=== PATIENT | male | born 1950 | race Caucasian/White ===

== ENCOUNTER → 2019-12-15 10:58 | Outpatient (BNVA) | payer OTHER, SELFPAY | PROVIDERS: Family Provider Internal Medicine; PCP Internal Medicine; Visit Provider Urology | DX: N30.21 Other chronic cystitis with hematuria (principal); N32.89 Other specified disorders of bladder; R35.1 Nocturia | CPT/HCPCS: 81001 ==

== ENCOUNTER → 2020-02-16 08:12 | Outpatient (BNVA) | payer OTHER, SELFPAY | PROVIDERS: Family Provider Internal Medicine; PCP Internal Medicine; Visit Provider Urology | DX: N30.20 Other chronic cystitis without hematuria (principal); R33.8 Other retention of urine; N32.89 Other specified disorders of bladder; R31.29 Other microscopic hematuria | CPT/HCPCS: 81001 ==

== ENCOUNTER 2021-03-16 07:53 | Outpatient (CLI) | payer OTHER, SELFPAY ==
--- NOTE | 2021-03-16 | CT_ITS ---
WS: [id number] CT scan of the neck. Additional two-dimensional coronal and sagittal reconstruction was performed. Clinical Data: PAIN IN THROAT Comparison: None. DLP: 2707.[address] scans at [facility] use at least one of these dose optimization techniques: automat ed exposure control; mA and/or kV adjustment per patient size (includes targeted exams where dose is matched to clinical indication); or iterative reconstruction. Findings: The thyroid gland is enlarged with the right lobe measuring 3.8 x 7.3 x 7.4 cm in transverse, anterio r posterior and superior inferior height respectively. The left lobe is smaller measuring 1.6 x 2.5 x 4.2 cm in transverse, anterior posterior and superior inferior height respectively. The thyroid glan d shows mixed enhancement. There is deviation of the trachea from right to left because of the thyroi d enlargement. No lymphadenopathy is noted. The salivary glands are unremarkable. There is no prevertebral soft tiss ue swelling. The larynx is symmetric. The floor of the mouth and parapharyngeal spaces are normal. T he oral cavity is unremarkable. The carotid arteries bifurcate normally. The vertebral arteries are normal. 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 The lung apices show n o abnormalities. The portions of the intracranial circulation which are seen demonstrate no abnormali ties. No erosion of the skull or skull base is seen. There is partial opacification of the left maxil reyes sinus. CT/CT neck w con* [id number] Impression: 1. Thyroid enlargement especially the right lobe. 2. Deviation of the trachea from right to left because of the enlarged right lo be of the thyroid.
[2021-03-16 09:03] LABS: Blood Urea Nitrogen 23 mg/dL (8-23)
[2021-03-16] MEDS: iohexol 300 mg/mL 100 mL Btl IV (09:22)
== END 2021-03-16 07:54 | disposition home or self-care (01) ==
LOC: RAD 08:22 → RADWPI 08:28
PROVIDERS: PCP Internal Medicine; Visit Provider Otolaryngology
DX: E04.9 Nontoxic goiter, unspecified (principal); Q89.2 Congenital malformations of other endocrine glands
CPT/HCPCS: 70491; 82565; 84520; Q9967

== ENCOUNTER 2021-04-12 06:37 | Outpatient (CLI) | payer OTHER, SELFPAY ==
[2021-04-12 07:11] VITALS: BMI 39.4
--- NOTE | 2021-04-12 07:31 | ECG_ITS ---
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 Interpretive Statements NAME OF STUDY: LEXISCAN SESTAMIBI STRESS TEST INDICATION: Chest Pain; Dyspnea on Exertion PROCEDURE: At the baseline, the blood pressure was 150/79 mmHg, oxygen saturation 94% with a heart rate of 54 beats per minute. The electrocardiogram showed sinus bradycardia, normal axis with possible old anterior infarct. The Lexiscan was infused over a period of 20 seconds. A total of 0.4 milligrams of Lexiscan was infused. The stress phase was continued for a total of 5 minutes. Heart rate at the end of the stress phase was 63 bpm, oxygen saturation 95% with a blood pressure of 154/76 mmHg. The EKG at the peak infusion revealed sinus rhythm with no significant ST-T wave changes. Isolated PVCs noted during Lexiscan infusion. Study was terminated due to protocol completion. Sestamibi was injected 20 seconds after the Lexiscan infusion. Blood pressure at the end of the recovery phase was 149/82 mmHg, oxygen saturation 95% with a heart rate of 69 beats per minute. CONCLUSION: 1. No significant EKG changes with the LexiScan infusion. 2. No LexiScan induced chest pain or cardiac arrhythmia. 3. Normal blood pressure and heart rate response. 4. Sestamibi/sestamibi perfusion scan pending; see separate report. Electronically Signed On 04-12-2021 13:07:51 CDT by Yarelis Davidson M.D. [id number]
--- NOTE | 2021-04-12 07:32 | NMCV_ITS ---
NM belinda perf SPECT r/s* [id number] Tom Germain Age: 70 Gender: M : 1950 Exam Date: 04/12/2021 08:07 Ordering Phys: Yarelis Davidson MD ([email or web address]) Technologist: LITTLE Perry Exam Location: [facility] Indications: CHEST PAIN STRESS TEST Please see separate stress test report in [facility] for full findings IMAGE PROTOCOL Rest/Stress 1 Lexiscan Day Radiopharmaceutical Dose (mCi) Administration Site Administered by Rest: Tc-99m 10.9 IV LITTLE Russo Sestamibi Stress:Tc-99m 32.5 IV LITTLE Perry Sestamiharley Rest: 12-Apr-2021 60 Discovery 630 Stress: 12-Apr-2021 30 Discovery 630 0.4mg Lexiscan. Images obtained in supine and prone position. SPECT RESULTS Technical Quality: Excellent Raw Data Analysis: Normal Image Corrections: No attenuation or motion correction applied Summed Stress Score: 2 Summed Rest Score: 0 Summed Difference Score: 2 PERFUSION FINDINGS Small size perfusion abnormality of mild severity of apical inferior and apical lateral schneider on stress images. FUNCTIONAL RESULTS (calculated via Gated SPECT) Stress Image LV EF (%): 68 Stress EDV (mL):112 TID: 0.97 Stress ESV (mL):36 FUNCTIONAL FINDINGS: The left ventricle is normal in size. Transient Ischemia Dilatation of 0.97. There is normal left ventricular systolic function. The left ventricular ejection fraction is normal with a value of 68%. There is normal left ventricular wall thickening with no regional wall motion abnormality. Normal end-diastolic end-systolic volumes. IMPRESSIONS 1. Small size reversible perfusion abnormality of apical inferior and apical lateral schneider on stress images. 2. This is likely suggestive of small area of ischemia in left anterior descending/circumflex artery territory. 3. Overall left ventricular systolic function is normal without regional wall motion abnormalities. 4. The left ventricular ejection fraction is normal with a value of 68%. 5. No prior similar studies to compare. Yarelis Davidson MD (Electronically Signed) Final Date: 12 Apr 2021 10:21 S
[2021-04-12] MEDS: regadenoson 0.4 Mg/5 ml Syringe IVP (08:39)
--- NOTE | 2021-04-12 08:39 | SUR.PREOP ---
Patient reports no pain or discomfort prior to the start of the procedure.
[2021-04-12 09:06] VITALS: BP 149/82; PULSE 69
== END 2021-04-12 06:38 | disposition home or self-care (01) ==
LOC: RAD 06:47 → CDL 07:04
PROVIDERS: PCP Family Medicine; Visit Provider Internal Medicine Cardiovascular Disease
DX: R07.9 Chest pain, unspecified (principal); R06.09 Other forms of dyspnea
CPT/HCPCS: 78452; 93017; A9500; J2785

== ENCOUNTER 2021-04-27 12:50 | Outpatient (CLI) | payer OTHER, SELFPAY ==
--- NOTE | 2021-04-27 13:30 | USCV_ITS ---
Tom Germain Age: 70 Gender: M : 1950 Exam Date: 04/27/2021 13:34 Ordering Phys: Yarelis Davidson MD ([email or web address]) Technologist: Caity Bautista Exam Location: [facility] Indication: PVC's, Atrial fibrillation BP: 136 / 78 HR: 104 Rhythm: Atrial fibrillation Technical Quality: Adequate MEASUREMENTS (Male / Female) Normal Values 2D ECHO LV Diastolic Diameter PLAX 3.6 cm 4.2 - 5.9 / 3.9 - 5.3 cm LV Systolic Diameter PLAX 2.2 cm IVS Diastolic Thickness 1.5 cm 0.6 - 1.0 / 0.6 - 0.9 cm IVS Systolic Thickness 1.8 cm LVPW Diastolic Thickness 1.7 cm 0.6 - 1.0 / 0.6 - 0.9 cm LVPW Systolic Thickness 2.9 cm LVOT Diameter 2.0 cm LV Ejection Fraction 2D Teich 71.6 % LV Ejection Fraction MOD 2C 76.6 % LV Ejection Fraction 2C AL 78.7 % LA Diameter 4.5 cm LA Width 2.9 cm LA Height 5.4 cm RA Width 2.6 cm RA Height 4.1 cm Aorta at Sinotubular Diameter 3.5 cm M-MODE LV Diastolic Diameter MM 3.9 cm 4.2 - 5.9 / 3.9 - 5.3 cm LV Systolic Diameter MM 4.0 cm LV Ejection Fraction MM Teich -3.7 % IVS Diastolic Thickness MM 1.3 cm 0.6 - 1.0 / 0.6 - 0.9 cm IVS Systolic Thickness MM 1.0 cm LVPW Diastolic Thickness MM 1.6 cm 0.6 - 1.0 / 0.6 - 0.9 cm LVPW Systolic Thickness MM 1.9 cm Aortic Annulus Diameter 3.6 cm LA Ao Ratio MM 1.2 MV E Point Septal Separation 0.4 cm DOPPLER AV Peak Velocity 146.0 cm/s LVOT Peak Velocity 126.0 cm/s AV Area Cont Eq vti 4.0 cm squared AV Area Cont Eq pk 2.7 cm squared MV Peak Velocity 132.0 cm/s MV Area PHT 3.4 cm squared Mitral E to A Ratio 3.3 MV E' Velocity 55.0 cm/s Mitral E to MV E' Ratio 9.3 Mitral E to LV E' Lateral Ratio 17.4 Mitral E to LV E' Septal Ratio 6.4 TR Peak Velocity 76.0 cm/s TR Peak Gradient 2.3 mmHg TR Mean Velocity 88.7 cm/s TR Mean Gradient 4.1 mmHg TR Velocity Time Integral 16.9 cm Right Atrial Pressure 3.0 mmHg Pulmonary Artery Systolic Pressu 5.3 mmHg PV Peak Velocity 97.0 cm/s RV Acceleration Time 0.1 s RV Ejection Time 0.4 s RV AcT/ET 0.4 FINDINGS Left Ventricle Normal left ventricular cavity size and systolic function. Left ventricular ejection fraction is estimated at 65-70 %. No regional wall motion abnormalities. Rhythm precludes evaluation of diastolic function. Right Ventricle Normal right ventricular size and systolic function. Right Atrium Right atrium not well visualized. Left Atrium Mildly increased left atrial size. Mitral Valve Mitral valve not well visualized. No mitral valve stenosis. Aortic Valve Aortic valve not well visualized. Tricuspid aortic valve. No aortic valve stenosis. No aortic valve regurgitation. Tricuspid Valve Tricuspid valve not well visualized. Trace tricuspid valve regurgitation. Pulmonic Valve Pulmonic valve not well visualized. No pulmonary valve stenosis. Trace pulmonary valve regurgitation. Pericardium No pericardial effusion. Aorta Aorta not well visualized. CONCLUSIONS 1. This is a technically difficult study. Ultrasound enhancing agent was used as per protocol. 2. Normal left ventricular cavity size and systolic function. Left ventricular ejection fraction is estimated at 65-70 %. No regional wall motion abnormalities. 3. Normal right ventricular size and systolic function. 4. No prior similar studies to compare. Yarelis Davidson MD (Electronically Signed) Final Date: 29 Apr 2021 17:44 S
[2021-04-27] MEDS: perflutren protein-a microsphr 0.22 mg/mL SDV 3 mL IV (16:08)
== END 2021-04-27 12:51 | disposition home or self-care (01) ==
PROVIDERS: PCP Family Medicine; Visit Provider Internal Medicine Cardiovascular Disease
DX: I49.3 Ventricular premature depolarization (principal); R07.9 Chest pain, unspecified
CPT/HCPCS: C8929; Q9956

== ENCOUNTER → 2021-06-07 09:24 | Outpatient (BNVA) | payer OTHER, SELFPAY | PROVIDERS: PCP Family Medicine; Referring Provider Internal Medicine Cardiovascular Disease; Visit Provider Internal Medicine Cardiovascular Disease | DX: Z01.818 Encounter for other preprocedural examination (principal); R07.9 Chest pain, unspecified; Z20.822 Contact with and (suspected) exposure to COVID-19 | CPT/HCPCS: 80048; 85025; 85610; 87635 ==

== ENCOUNTER 2021-06-13 06:05 | Day surgery (SDC) | payer OTHER, SELFPAY ==
[2021-06-13] VITALS (11 sets, daily range): BP systolic 90–130; BP diastolic 64–77; PULSE 78–109; RESP 13–21; TEMP 36.8–36.9; O2SAT 94–96; BMI 39.7
--- NOTE | 2021-06-13 06:00 | XACV_ITS ---
Ht: 178 cm Wt: 126 kg BSA: 2.55 m2 Gender: Male : 1950 Any Known Allergies: Other Exam Priority: Routine Procedure(s): Procedure Description: Diagnostic procedure Procedure Description: PCI procedure Procedure Description: Drug Eluting Coronary Stent Procedure Description: PTCA Procedure Description: Coronary Angiography Diagnostic Cath Status: Elective Diagnostic Findings * Left Main has no significant disease. * Circumflex has no significant disease. * Mid Left Anterior Descending: mild 40% stenosis, KEESHA: 3 flow. * Mid Right Coronary Artery: severe 85% stenosis, KEESHA: 3 flow. * 1st Diagonal: moderate 50% stenosis, KEESHA: 3 flow. * Coronary angiography shows right dominance. PCI Status: Elective PCI Indication: New Onset Angina <= 2 months Interventional Findings * Procedure details: We engaged RCA with a JR4 guide catheter. IV heparin was administered to maintain an ACT above 250 seconds. A 0.014 run-through guidewire was used to cross the stenosis and was placed in PDA branch. 2.5 x 8 mm semicompliant balloon was used to predilate the mid RCA stenosis. We then placed a 3.0x12 mm resolute adan ADY in mid RCA. At this time final angiogram was performed that showed excellent stent expansion, KEESHA-3 flow and no residual stenosis. Guidewire and guide catheter. * Mid Right Coronary Artery: 85% stenosis treated with a AB TREK 2.50X8 RX BALLOON, and MDT R ADAN 3.0X12 ADY. 0% residual stenosis, KEESHA: 3 flow. Conclusions 1. Severe mid RCA stenosis 2. s/p successful revascularization with ADY x1. 3. Mid Right Coronary Artery was treated with a Balloon, and Drug Eluting Stent. Recommendations * Transfer to [facility]. * Aspirin and Plavix for 1 year. * High intensity statin therapy. * Outpatient cardiology follow-up in 4 weeks. Interventional RX Recommendation: PCI w/o planned CABG Diagnostic RX Recommendation: PCI w/o planned CABG Anticoagulation: Heparin Pressures Phase:Rest AO : 73 / 63 ( 66 ) @ 7:03:00 AM 120 / 108 ( 79 ) @ 7:10:00 AM Clinical Evaluation EBL: 5mL-10mL Procedural Details Procedure Consent Obtained. Pre-Procedure Time Out. Identified patient by full name and date of as verbalized by the patient/guarantor. Does the consent match the physician's order: Yes. Accurate & Complete Informed Consent: Yes. Inpatient/Outpatient History & Physical on Chart: Yes. If H&P is completed, is and addenduem needed: N/A; If yes, is the addendum complete: N/A. Visualize and Verify Site with Patient/Guarantor: N/A. Relevant Radiology Images available: Yes. Pre-op teaching completed and patient verbalized understanding. The risks, benefits, and alternatives of sedation and/or procedure were discussed by physician. The patient agrees to continue. Procedure started. Correct patient, site and procedure confirmed by cath team. PERRLA. 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 Lungs clear x 5 lobes. IV Fluids: 0.9% NaCl at KVO. 0 mL infused prior to geoscience laboratory technician. Pre Procedural Pulses: right dorsalis pedis was 1+. Pre Procedural Pulses: left dorsalis pedis was 3+. Pre Procedural Pulses: bilateral posterior tibial was 3+. Pre Procedural Pulses: bilateral radial was 3+. pt on room air. right groin was prepped with chloroprep then draped in the usual sterile fashion. right radial was prepped with chloroprep then draped in the usual sterile fashion. Equipment: 5F - Radial. Cardiac Cath Pack. ACIST Manifold Kit Model BT 2000. Heparinized Saline (2 units/mL), 1000 mL bag. Physician notified. Baseline sample Acquired. HR: 91 BPM. Physician arrived. Physician scrubbed in. Immediate Pre-Procedure Time Out. Correct Patient: Yes; Correct Procedure: Yes; Correct Site: Yes; Correct Patient Position: Yes; Correct Supplies: Yes; Dried Flammable Prep: Yes; Blood Products Available: No;. Lidocaine 1% infiltrated to the right radial. Arterial access obtained. A 5 mexican TIG catheter in over wire. Catheter out. A 5 mexican JL3.5 catheter in over wire. Multiple views taken of left coronary artery. Oxygen started at 3liters/min via nasal canula. Catheter out. A 5 mexican JR4 catheter in over wire. Multiple views taken of right coronary artery. Catheter out. Inventory is TR 180cm Runthrough NS extra floppy 0.014 wire. 6 mexican JR 4 guide catheter was inserted over the wire. Runthrough guidewire was advanced through the guide catheter to lesion in the mid RCA. Guidewire advanced across lesion. Inflation number : 1 A AB TREK 2.50X8 RX BALLOON was prepped and advanced across the Mid RCA , then inflated to 12 LYLY for 0:21 seconds. Inflation number: 2 The AB TREK 2.50X8 RX BALLOON was reinflated across the Mid RCA, to 12 LYLY for 0:03 seconds. Balloon out. Inflation Number : 3 A MDNikolas R ADAN 3.0X12 ADY -Lot Number# [id number] exp 09-27-2022 was prepped and advanced across the Mid RCA. The stent was deployed at 14 LYLY for 0:23 seconds. Stent balloon out over wire. Results checked. Wire out. Results checked. Guide catheter out. A TR Band was successful obtaining hemostatsis at the Right Radial artery insertion site. TR band placed. Hemostasis obtained. Post Procedure: Pulses reassessed and unchanged. PERRLA. 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 No VTE prophylaxis required. Fluoro: 9:50. Contrast type used: Omnipaque 300 mgI/mL, 500 mL bottle. [id number]. Complications: none. Estimated blood loss: 5mL-10mL. Patient transferred by wheelchair to 1st floor. Medication's Wasted: Lidocaine 1% = 18 mL. Medication's Wasted: Nitro = 49.8 mg. Total IV fluids: 279 mL. PCI Indication:severe mid RCA stenosis. Post-op diagnosis: severe mid RCA stenosis. [facility] Clinical Fraility Score: 3: Managing Well. Hand Salter Indications: Worsening Angina - abnormal stress test. Chest Pain Symptom Assessment: Typical Angina Symptoms. Cardiovascular Instability: No. Procedure completed. Vital chart was stopped. Access Site Site: Right Radial artery Sheath Size: 6 Fr Hemostasis Method: TR Band Hemostasis Success: Successful Procedure Medications Start: 7:54 AM Stop: 7:54 AM Medication: Versed Amount: 1 mg Route: I.V. Start: 7:54 AM Stop: 7:54 AM Medication: Fentanyl Amount: 50 mcg Route: I.V. Start: 7:57 AM Stop: 7:57 AM Medication: Versed Amount: 1 mg Route: I.V. Start: 7:57 AM Stop: 7:57 AM Medication: Fentanyl Amount: 50 mcg Route: I.V. Start: 7:57 AM Stop: 7:57 AM Medication: Nitrogylcerin Amount: 200 mcg Route: I.A. Start: 7:59 AM Stop: 7:59 AM Medication: Heparin Amount: 5000 units Route: I.V. Start: 8:04 AM Stop: 8:04 AM Medication: 0.9% Saline Amount: 250 ml Route: I.V. bolus Start: 8:15 AM Stop: 8:15 AM Medication: Heparin Amount: 6000 units Route: I.V. Start: 8:16 AM Stop: 8:16 AM Medication: Versed Amount: 1 mg Route: I.V. Start: 8:20 AM Stop: 8:20 AM Medication: 0.9% Saline Amount: 100 ml/hr Route: I.V. drip Start: 8:27 AM Stop: 8:27 AM Medication: Plavix Amount: 300 mg Route: P.O. I, the attending physician, have reviewed and verified all procedure medications. Yes, all medications given per verbal order History/Risk Factors Hypertension: Yes Dyslipidemia: Yes Tobacco Use: Never Report Signatures Finalized by Connor Ramirez MD on 06/22/2021 09:02 AM
[2021-06-13] MEDS: diphenhydrAMINE 50 mg Capsule PO (06:43)
--- NOTE | 2021-06-13 07:48 | W.PM.OPSUD ---
Surgery/Procedure H&P Update DATE OF PROCEDURE: June 13, 2021 DATE H&P PERFORMED: 05/23/21 H&P UPDATE INFORMATION: I have reviewed H&P completed within last 30 days, I have examined patient prior to procedure and No changes to prior documentation PREOP DIAGNOSIS: Chest pain/abnormal stress test PRIMARY INDICATION FOR PROCEDURE: Chest pain/abnormal stress test PLANNED PROCEDURE: Operation Date: 06/13/21 07:00 Proposed Procedures p left Cardiac Catheterization 88766 r07.89(Left) - Connor Ramirez M.D Possible percutaneous coronary intervention PATIENT REASSESSED PRIOR TO SEDATION, WITH NO CHANGE NOTED: Yes PHYSICAL EXAM: alert, oriented x 3, clear to auscultation bilaterally and regular rate & rhythm AIRWAY EVAL/ANESTHESIA PLAN: normal airway, ASA III, Monitored Anesthesia, Local Anesthesia, Risks, benefits & alternatives of sedation and/or procedure discussed and Patient agrees to continue as planned
--- NOTE | 2021-06-13 09:26 | PC.NURSE ---
Spoke with Dr. Ramirez to notify him of patient reporting taking all his scheduled medications prior to admission also patient patient reports he did not take his Imdur prior to admission reported patients current Bp of 115/56 instructions to hold this dose of mediations
--- NOTE | 2021-06-13 18:20 | PC.NURSE ---
patients family spouse approached nurses station with concerns of patient HR remaining greater than 100 this nurse expressed concern for patient and has been keeping a close eye on it spouse proceeded to tell this nurse you have done nothing about it Am i the only one concerned abgout his heart rate being so high this nurse educated spouse the doctor was aware of patient heart rate this nurse educated spouse that the patient was in no distress or pain and the doctor would be down after clinic This nurse placed call to Dr galan to report spouses concerns verbal instructions received to start patient on 3.125 of coreg Doctor notified of patients allergy to metoprolol instructions to proceed with administration upon administration this nurse educated about medication Dr barrett to bed side wit verbal instructions to increase medication does to 6.125 this nurse already administered 3.125 verbal instructions to give an additional 3.12 coreg
--- NOTE | 2021-06-13 18:31 | ECG_ITS ---
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 Measurements Intervals [place] Rate: 111 P: [place]: QRS: 31 QRSD: 95 T: -6 QT: 419 QTc: 571 Interpretive Statements ATRIAL FIBRILLATION WITH RAPID VENTRICULAR RESPONSE LOW QRS VOLTAGE IN PRECORDIAL LEADS [QRS DEFLECTION < 1.0 mV IN CHEST LEADS] NONSPECIFIC T-WAVE ABNORMALITY No previous ECG available for comparison Electronically Signed On 06-13-2021 21:37:29 CDT by Yarelis Davidson M.D. [id number]
[2021-06-13] MEDS: carvedilol 3.125 mg Tablet PO ×2 (18:52→18:58)
[2021-06-14 04:00] VITALS: BP 120/82; PULSE 99; RESP 18; TEMP 36.8; O2SAT 94
[2021-06-14 05:46] LABS: Basophils # 0.1 10^3/uL (0.0-0.1); Basophils % 0.7 %; Eosinophils # 0.3 10^3/uL (0.0-0.8); Eosinophils % 4.2 %; Hemoglobin 12.6 g/dL (11.7-16.6); Lymphocytes # 1.3 10^3/uL (0.8-4.8); Lymphocytes % 19.4 %; Mean Corpuscular HGB Conc 31.5 g/dL (30.0-36.0); Mean Corpuscular Hemoglobin 28.3 pg (28.0-34.0); Mean Corpuscular Volume 89.7 fL (80-94); Mean Platelet Volume 9.9 fL (7.4-10.4); Monocytes # 0.5 10^3/uL (0.2-0.9); Monocytes % 7.7 %; Neutrophils # 4.55 10^3/uL (1.8-7.7); Neutrophils % 67.9 %; Nucleated Red Blood Cells % 0 %; Platelet Count 222 10^3/cmm (130-400); Red Blood Count 4.46 10^6/uL (4.1-5.3); Red Cell Distribution Width 13.5 % (12.1-15.1); White Blood Count 6.7 10^3/uL (4.0-10.0)
[2021-06-14 05:47] VITALS: PULSE 95
[2021-06-14 06:03] LABS: Blood Urea Nitrogen 16 mg/dL (8-23); Calcium 8.5 mg/dL (8.5-10.5); Carbon Dioxide 24 mmol/L (22-29); Chloride 105 mmol/L (98-107); Glucose 96 mg/dL (65-115); Osmolality Calculated 287 mOsm/kg (285-295); Sodium 138 mmol/L (136-145)
[2021-06-14 08:00] VITALS: BP 138/93; PULSE 117; RESP 20; O2SAT 93
[2021-06-14] MEDS: isosorbide mononitrate ER 30 mg Tablet 15 MG PO (08:34)
[2021-06-14] MEDS: lisinopril 5 mg Tablet PO (08:35)
[2021-06-14] MEDS: finasteride 5 mg Tablet PO (08:36)
[2021-06-14] MEDS: carvedilol 3.125 mg Tablet PO (08:36)
[2021-06-14] MEDS: atorvastatin 40 mg Tablet PO (08:36)
[2021-06-14] MEDS: potassium chloride ER 10 mEq Tablet PO (08:36)
[2021-06-14] MEDS: clopidogrel 75 mg Tablet PO (08:36)
[2021-06-14] MEDS: rivaroxaban 10 mg Tablet 20 MG PO (10:04)
--- NOTE | 2021-06-14 10:31 | PC.CHAP ---
Pastoral Care Encounter/Spiritual Assessment Type of Contact [] Declined renal social worker visit [] Patient/Family/Request visit [] Outpatient visit [] Follow-up visit [] Physician referral [] Code/Alert [] Routine visit [] Staff referral [] Actively dying [] Patient sleeping [] Family support [] [] Out of room [] Palliative care [] [] Receiving care in room [] Pre-surgical visit [] Trauma [] Long length of stay [] ICU visit [x] Other: Isolation covid Relational/Emotional Strength [] Patient feels connected with others/family/visitors/staff [] Distress [] Loneliness/isolation [] Abandonment Spirituality of Patient [] Person of Diane [] Attends Protestant of their Diane [] Believes in Prayer [] Reads Bible or Lutheran materials [] There are Spiritual issues to be addressed Equine Dentist Interventions [] Prayer [] Active listening [] Non-anxious presence [] Spiritual/emotional support [] Crisis/trauma care [] Spiritual counseling [] Bereavement support [] Provided bereavement packet [] Provided Bible/devotional materials [] Provided toy/stuffed animal, coloring book to patient or family member [] Provided Communion [] Anointing/[place] [] Salvation [] Completed spiritual assessment [] Other: Impact on Illness or Injury [] Angry [] Fearful [] Anxious [] Often cries [] Exhaustion [] Unable to work [] Unable to attend latter-day [] Unable to walk/stand [] Unable to read [] Unable to drive [] Unable to eat/drink [] Unable to sleep [] Unable to be with family [] Patient intubated [] Other: Summary Isolation covid Time spent with patient 5 mins
[2021-06-14] MEDS: carvedilol 6.25 mg Tablet PO (10:40)
[2021-06-14 11:52] VITALS: BP 114/68; PULSE 105; RESP 19; TEMP 36.8; O2SAT 93
--- NOTE | 2021-06-14 12:42 | P.DS_ITS ---
Discharge Providers Date of Admission: June 13, 2021 Date of Discharge: June 14, 2021 Attending Provider at Admission: Connor Ramirez MD Attending Provider at Discharge: Connor Ramirez M.D Primary Care Provider: Leigh Arroyo MD Reason for Visit Reason for Visit: [facility] Brief History: 70 yo man with PMHx of HTN, DM-2 on OHA for last several years, HLD, h/o PAC's presented for evaluation of chest pains. He presents for evaluation of mild chest pain with radiation to both arms at times. This happens with exertion like carrying trash, yard work and lasts 5- 10 mins. Patient underwent nuclear stress test that was abnormal and was referred for left heart cath with possible percutaneous coronary intervention Hospital Course Hospital Course 70 yo man with PMHx of HTN, DM-2 on OHA for last several years, HLD, h/o PAC's presented for evaluation of chest pains. He presents for evaluation of mild chest pain with radiation to both arms at times. This happens with exertion like carrying trash, yard work and lasts 5-10 mins. Patient underwent nuclear stress test that was abnormal and was referred for left heart cath with possible percutaneous coronary intervention Coronary angiogram showed severe mid RCA stenosis that underwent successful revascularization with ADY x1. Left-sided arteries had diffuse luminal irregularities. No significant stenosis was noted. Patient stayed in the hospital overnight without any complications. Patient was found to have atrial fibrillation which is new for him. His heart rate has been fluctuating however after being put on Coreg, heart rates improved significantly and were around 100 bpm. He will follow with cardiology as outpatient. He has been started on Xarelto for stroke prevention. He will continue with Plavix and Xarelto. Physical Exam Narrative: EXAM NARRATIVE: GENERAL: Patient is alert, awake and oriented x3. [] NECK: No jugular vein distension. [] HEENT: No cyanosis. No icterus. No pallor. [] HEART: Regular S1 and S2. No murmur, rub or gallop. [] LUNGS: Clear to auscultate bilaterally. [] ABDOMEN: Soft, nontender and nondistended. Positive bowel sounds. No guarding, rebound or tenderness. [] CENTRAL NERVOUS SYSTEM: Grossly nonfocal. [] EXTREMITIES: Lower extremities with 1+ edema bilaterally. Pulses palpable in the lower extremities, both dorsalis pedis and posterior tibial. [] Discharge Data Data Completed and Pending: Pending at discharge Category Date Time Status SEISMIC INTERPRETER request for service Routin e Exams 06/13/21 06:00 Taken Labs from last 24 hours 06/14/21 06/14/21 05:20 05:20 WBC 6.7 RBC 4.46 Hgb 12.6 Hct 40.0 L MCV 89.7 MCH 28.3 MCHC 31.5 RDW 13.5 Plt Count 222 MPV 9.9 Neut % (Auto) 67.9 Lymph % (Auto) 19.4 [place] % (Auto) 7.7 Eos % (Auto) 4.2 Baso % (Auto) 0.7 Neut # (Auto) 4.55 Lymph # (Auto) 1.3 [place] # (Auto) 0.5 Eos # (Auto) 0.3 Baso # (Auto) 0.1 Nucleated RBC % (a uto) 0 Nucleated RBCs # 0.0 Sodium 138 Potassium 4.0 Chloride 105 Carbon Dioxide 24 Anion Gap 13.0 BUN 16 Creatinine 0.6 L GFR Calculation Not Reportable Glucose 96 Calculated Osmolal ity 287 Calcium 8.5 Vitals: Last Vital Signs Temp 98.2 F 06/14/21 11:52 Pulse 105 H 06/14/21 11:52 Resp 19 H 06/14/21 11:52 BP 114/68 06/14/21 11:52 Pulse Ox 93 06/14/21 11:52 Discharge Plan Discharge Patient Disposition: Home Condition: Stable Prescriptions: New clopidogrel 75 mg Tablet 75 mg PO DAILY 30 Days Qty: 90 RF: 3 rivaroxaban 20 mg tablet 20 mg PO DAILY Qty: 90 RF: 3 Coreg 6.25 mg tablet 6.25 mg PO BID Qty: 120 RF: 3 Continued nitroglycerin 0.4 mg tablet, sublingual 0.4 mg sublingual Q5M PRN (Reason: chest pain) Qty: 30 RF: 3 lisinopril 5 mg tablet 5 mg PO DAILY Qty: 30 RF: 5 isosorbide mononitrate 30 mg tablet extended release 24 hr 15 mg PO DAILY Qty: 30 RF: 2 rosuvastatin 10 mg tablet 10 mg PO DAILY RF: 0 meloxicam 15 mg tablet 15 mg PO DAILY RF: 0 finasteride 5 mg tablet 5 mg PO DAILY RF: 0 lidocaine HCl 2 % jelly 1 applic INTRA-URET ONCE Qty: 1 RF: 0 potassium chloride 10 mEq capsule, extended release 10 meq PO DAILY Qty: 90 RF: 3 magnesium oxide 400 mg magnesium tablet 400 mg PO DAILY Qty: 90 RF: 3 alogliptin 25 mg Tablet 25 mg PO DAILY RF: 0 Glucosamine Chondroitin 550-30-1 mg Capsule 550 cap PO DAILY RF: 0 Held metformin 500 mg tablet 500 mg PO BID RF: 0 Hold Instructions: Resume on 06/16/21. Discharge Orders: Discharge Order (Routine); Ordered 06/14/21 Ordered By: Connor Ramirez Referrals: Mirna Hightower FNP [Nurse Practitioner] - 06/21/21 12:45 pm (You have a post procedure followup with DIONI Vance at [facility] on June 21 at 12:45pm ) Yarelis Davidson MD [Physician] - 07/25/21 2:15 pm (You have a cardiology followup with Dr. Davidson at [facility] on July 25 at 2:15pm ) Discharge Diet: Cardiac and Diabetic Patient Instructions: Carvedilol (By mouth), Clopidogrel (By mouth), Rivaroxaban (By mouth), Left Heart Catheterization (DC), Right Heart Catheterization (DC), Coronary Angioplasty (DC) Activity Restrictions/Additional Instructions: Please do not lift more than 5 pounds of weight for the next 5 days. Keep a log of blood pressure and heart rates and bring to your cardiology appointment Discharge Attestations Time Spent in Discharge Care*: greater than 30 min Quality Metrics Clinical Quality Measures During this hospital stay, did patient experience: None Coding Level of Care Code Acute Chg FW DC note
--- NOTE | 2021-06-14 13:20 | PC.NURSE ---
Patient in need of 15 day supply of prescriptions called into local pharmacy to get him by until [facility] sends him his meds. Dr. Ortiz notified and gave verbal orders for meds to be called into local pharmacy. Patient chose [facility]. Meds called into pharmacy are as follows: Xerelto 20 mg on tab daily 15 day supply Coreg 6.25mg one tab twice daily 15 day supply Plavix 75 mg one tab daily 15 day supply
[2021-06-14 13:50] VITALS: BP 114/68; PULSE 105; RESP 19; TEMP 36.8; O2SAT 93
== END 2021-06-14 14:31 | disposition home or self-care (01) ==
LOC: CCL 06:07 → CSU 08:51
PROVIDERS: PCP Family Medicine; Visit Provider Internal Medicine
DX: I25.10 Atherosclerotic heart disease of native coronary artery without angina pectoris (principal); E11.9 Type 2 diabetes mellitus without complications; E78.5 Hyperlipidemia, unspecified; I10 Essential (primary) hypertension; I49.3 Ventricular premature depolarization; I47.1 Supraventricular tachycardia
CPT/HCPCS: 36415; 80048; 85025; 93005; 93454; C1725; C1769; C1874; C1887; C1894; C9600; J1644; J2250; J3010; J3490; J7030; Q0163; Q9967

== ENCOUNTER → 2021-06-21 14:10 | Outpatient (BNVA) | payer OTHER, SELFPAY | PROVIDERS: PCP Family Medicine; Visit Provider Nurse Practitioner Family | DX: I25.10 Atherosclerotic heart disease of native coronary artery without angina pectoris (principal) | CPT/HCPCS: 80048 ==

== ENCOUNTER 2021-08-07 11:54 | Outpatient (RCR) | payer OTHER, SELFPAY | END 2021-08-30 23:59 | disposition home or self-care (01) | LOC: CR 11:54 | PROVIDERS: Family Provider Family Medicine; PCP Family Medicine; Referring Provider Internal Medicine Cardiovascular Disease; Visit Provider Internal Medicine Cardiovascular Disease | DX: Z95.5 Presence of coronary angioplasty implant and graft (principal) | CPT/HCPCS: 93798 ==

== ENCOUNTER 2021-08-31 09:21 | Outpatient (RCR) | payer OTHER, SELFPAY | END 2021-09-30 23:59 | disposition home or self-care (01) | LOC: CR 09:21 | PROVIDERS: Family Provider Family Medicine; PCP Family Medicine; Referring Provider Internal Medicine Cardiovascular Disease; Visit Provider Internal Medicine Cardiovascular Disease | DX: Z95.5 Presence of coronary angioplasty implant and graft (principal) | CPT/HCPCS: 93798 ==

== ENCOUNTER → 2021-09-04 09:59 | Outpatient (BNVA) | payer OTHER, SELFPAY | PROVIDERS: Family Provider Family Medicine; PCP Family Medicine; Visit Provider Internal Medicine Cardiovascular Disease | DX: E78.5 Hyperlipidemia, unspecified (principal); I10 Essential (primary) hypertension; I25.119 Atherosclerotic heart disease of native coronary artery with unspecified angina pectoris; I47.1 Supraventricular tachycardia; I49.3 Ventricular premature depolarization; R07.9 Chest pain, unspecified; I48.19 Other persistent atrial fibrillation; E11.9 Type 2 diabetes mellitus without complications | CPT/HCPCS: 80053; 80061; 83721; 83735; 83880; 84439; 84443; 84481 ==

== ENCOUNTER 2021-09-14 11:36 | Outpatient (CLI) | payer OTHER, SELFPAY ==
--- NOTE | 2021-09-14 12:24 | ECG_ITS ---
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 Measurements Intervals [place] Rate: 94 P: TN: QRS: 26 QRSD: 86 T: 31 QT: 345 QTc: 433 Interpretive Statements ATRIAL FIBRILLATION Compared to ECG 06/13/2021 18:31:27 T-wave abnormality no longer present Electronically Signed On 09-14-2021 18:40:25 CDT by Connor Ramirez M.D. [id number]
[2021-09-14 12:27] LABS: Basophils # 0.1 10^3/uL (0.0-0.1); Basophils % 0.8 %; Eosinophils # 0.5 10^3/uL (0.0-0.8); Eosinophils % 6.2 %; Hematocrit 42.6 % (42.0-52.0); Hemoglobin 14.1 g/dL (11.7-16.6); Lymphocytes # 1.4 10^3/uL (0.8-4.8); Lymphocytes % 18.3 %; Mean Corpuscular HGB Conc 33.1 g/dL (30.0-36.0); Mean Corpuscular Hemoglobin 29.3 pg (28.0-34.0); Mean Corpuscular Volume 88.6 fl (80-94); Mean Platelet Volume 9.6 fL (7.4-10.4); Monocytes # 0.6 10^3/uL (0.2-0.9); Neutrophils # 5.13 10^3/uL (1.8-7.7); Neutrophils % 66.4 %; Nucleated Red Blood Cells % 0 %; Platelet Count 244 10^3/cmm (130-400); Red Blood Count 4.81 10^6/uL (4.1-5.3); Red Cell Distribution Width 13.6 % (12.1-15.1); White Blood Count 7.7 10^3/uL (4.0-10.0)
[2021-09-14 13:18] LABS: Alanine Aminotransferase 13 U/L (0-41); Albumin Level 4.4 g/dL (3.5-5.2); Alkaline Phosphatase 62 IU/L (40-130); Anion Gap 15.4 (5-19); Aspartate Amino Transferase 14 U/L (0-40); Blood Urea Nitrogen 29 mg/dL (8-23); Calcium 9.6 mg/dL (8.5-10.5); Carbon Dioxide 27 mmol/L (22-29); Chloride 100 mmol/L (98-107); Globulin 2.7 g/dL (1.3-4.6); Glucose 85 mg/dL (65-115); Magnesium 1.9 mg/dL (1.7-2.3); NT Pro B Type Natriuretic Pept 1106 pg/mL (0-125); Osmolality Calculated 291 mOsm/kg (285-295); Potassium 4.4 mmol/L (3.5-5.1); Sodium 138 mmol/L (136-145); Thyroid Stimulating Hormone 3.07 uIU/mL (0.27-4.20); Total Bilirubin 0.4 mg/dL (0.15-1.2); Total Protein 7.1 g/dL (6.6-8.7)
== END 2021-09-14 11:37 | disposition home or self-care (01) ==
LOC: RT 11:40
PROVIDERS: Internal Medicine Cardiovascular Disease; PCP Family Medicine; Visit Provider Specialist
DX: E11.9 Type 2 diabetes mellitus without complications (principal); E78.5 Hyperlipidemia, unspecified; I49.3 Ventricular premature depolarization; R07.9 Chest pain, unspecified; I25.119 Atherosclerotic heart disease of native coronary artery with unspecified angina pectoris; I47.1 Supraventricular tachycardia; I48.19 Other persistent atrial fibrillation
CPT/HCPCS: 36415; 80053; 83735; 83880; 84443; 85025; 93005

== ENCOUNTER → 2021-09-27 | Day surgery (SDC) | payer OTHER, SELFPAY | PROVIDERS: PCP Family Medicine; Visit Provider Internal Medicine Cardiovascular Disease | DX: Z01.818 Encounter for other preprocedural examination (principal); Z20.822 Contact with and (suspected) exposure to COVID-19 | CPT/HCPCS: 87635 ==

== ENCOUNTER 2021-10-01 13:17 | Outpatient (RCR) | payer OTHER, SELFPAY | END 2021-10-30 23:59 | disposition home or self-care (01) | LOC: CR 13:17 | PROVIDERS: PCP Family Medicine; Referring Provider Internal Medicine Cardiovascular Disease; Visit Provider Internal Medicine Cardiovascular Disease | DX: Z95.5 Presence of coronary angioplasty implant and graft (principal) | CPT/HCPCS: 93798 ==

== ENCOUNTER 2021-10-02 16:52 | Observation (INO) | payer OTHER, SELFPAY ==
[2021-10-01 17:23] VITALS: BMI 39.0
[2021-10-02] VITALS (33 sets, daily range): BP systolic 106–140; BP diastolic 69–99; PULSE 56–155; RESP 13–26; TEMP 36.6; O2SAT 89–100
[2021-10-02] MEDS: sodium chloride 0.9% 1,000 ML 30 ML IV (11:00)
[2021-10-02 11:47] LABS: Glucose Point of Care 99 mg/dL (70-110)
--- NOTE | 2021-10-02 12:27 | ANES.PREANE2 ---
Pre-Anesthetic Assessment Pre-Anesthetic Assessment: Height/Weight: Height 1.78 m Weight 123.377 kg Temp Pulse Resp BP Pulse Ox 97.9 F 56 L 18 133/93 96 10/02/21 11:11 10/02/21 11:11 10/02/21 11:11 10/02/21 11:11 10/02/21 11:11 Preop Diagnosis: Chest pain/abnormal stress test Proposed Procedure: Operation Date: 10/02/21 13:00 Proposed Procedures p Hemithyroidectomy(Right) - Jax Garcia MD Familial anesthetic complications: None Was Beta Dipesh taken within 24 hours: N/A Was Clonidine taken within 24 hours: N/A Last intake: Intake Last Liquid Date 10/01/21 Last Liquid Time 21:30 Last Solid Date 10/01/21 Last Solid Time 21:30 Social: Social History: No alcohol and No tobacco Exam: Pre-Anes Outpt Exam: alert, oriented x 3, clear to auscultation bilaterally and regular rate & rhythm Airway: MP: 4 Dentition: Other (multiple missing teeth) Additional comments: calvin/[place] CV/HEM: CV/HEM: Afib (Hx a fib/ RVR), CAD (ADY to RCA on 07/19/21 still on plavix) and HTN Comments: 06/13/2021 ATRIAL FIBRILLATION WITH RAPID VENTRICULAR RESPONSE LOW QRS VOLTAGE IN PRECORDIAL LEADS [QRS DEFLECTION < 1.0 mV IN CHEST LEADS] NONSPECIFIC T-WAVE ABNORMALITY No previous ECG available for comparison Procedure Description: Coronary Angiography 06/13/2021 Diagnostic Cath Status: Elective Diagnostic Findings * Left Main has no significant disease. * Circumflex has no significant disease. * Mid Left Anterior Descending: mild 40% stenosis, KEESHA: 3 flow. * Mid Right Coronary Artery: severe 85% stenosis, KEESHA: 3 flow. * 1st Diagonal: moderate 50% stenosis, KEESHA: 3 flow. * Coronary angiography shows right dominance. PCI Status: Elective PCI Indication: New Onset Angina <= 2 months Interventional Findings * Procedure details: We engaged RCA with a JR4 guide catheter. IV heparin was administered to maintain an ACT above 250 seconds. A 0.014 run-through guidewire was used to cross the stenosis and was placed in PDA branch. 2.5 x 8 mm semicompliant balloon was used to predilate the mid RCA stenosis. We then placed a 3.0x12 mm resolute adan ADY in mid RCA. At this time final angiogram was performed that showed excellent stent expansion, KEESHA-3 flow and no residual stenosis. Guidewire and guide catheter. * Mid Right Coronary Artery: 85% stenosis treated with a AB TREK 2.50X8 RX BALLOON, and MDT R ADAN 3.0X12 ADY. 0% residual stenosis, KEESHA: 3 flow. Conclusions 1. Severe mid RCA stenosis 2. s/p successful revascularization with ADY x1. 3. Mid Right Coronary Artery was treated with a Balloon, and Drug Eluting Stent. TTE (04/27/21) CONCLUSIONS 1. This is a technically difficult study. Ultrasound enhancing agent was used as per protocol. 2. Normal left ventricular cavity size and systolic function. Left ventricular ejection fraction is estimated at 65-70 %. No regional wall motion abnormalities. 3. Normal right ventricular size and systolic function. 4. No prior similar studies to compare. Lexiscan Sestamibi MPI (04/12/21) IMPRESSIONS 1. Small size reversible perfusion abnormality of apical inferior and apical lateral schneider on stress images. 2. This is likely suggestive of small area of ischemia in left anterior descending/circumflex artery territory. 3. Overall left ventricular systolic function is normal without regional wall motion abnormalities. 4. The left ventricular ejection fraction is normal with a value of 68%. 5. No prior similar studies to compare. Metabolic: Metabolic: DM Anesthetic Plan: ASA status: 4 Anesthesia: General Risk of > 500 ml blood loss (7ml/kg in children): No PFSH Anesthesia PFSH: Medical History Atrial fibrillation Chronic cystitis Coronary artery disease Diabetes Dyslipidemia Erythematous bladder mucosa HTN (hypertension) Lower urinary tract symptoms Microhematuria PSVT (paroxysmal supraventricular tachycardia) PVC (premature ventricular contraction) Surgical History H/O right wrist surgery History of back surgery History of neck surgery S/P right coronary artery (RCA) stent placement Total knee replacement status BILATERAL Family History Mother , AI HER 80'S UNKNOWN CAUSE Angina at rest Denies family history of Diabetes Stroke Social History Alcohol intake: unknown Adopted: No Caregiver/support person: No Lives independently: No Household members: spouse Marital status: Current occupational status: retired Data Anesthesia Other Labs: Laboratory Results - last 48 hr 10/02/21 11:26 POC Glucose 99 Cardiac Studies: Echocardiogram 04/27/21
--- NOTE | 2021-10-02 12:57 | W.PM.OPSUD ---
Surgery/Procedure H&P Update DATE OF PROCEDURE: October 02, 2021 DATE H&P PERFORMED: 09/14/21 H&P UPDATE INFORMATION: I have reviewed H&P completed within last 30 days, I have examined patient prior to procedure and No changes to prior documentation PREOP DIAGNOSIS: Right thyroid nodule with suspicious FNA biospy PLANNED PROCEDURE: Operation Date: 10/02/21 13:00 Proposed Procedures p Hemithyroidectomy(Right) - Jax Garcia MD
[2021-10-02] MEDS: ceFAZolin 1,000 mg SDV 1000 MG IRRIGATION (14:16)
[2021-10-02] MEDS: fluorescein 1 mg Strip 2 MG XX (14:44)
[2021-10-02] MEDS: fluorescein 1 mg Strip XX (14:44)
[2021-10-02] MEDS: EPINEPHrine 1 mg/mL INJ XX (14:45)
[2021-10-02] MEDS: neomycin-poly-bacitracin oint 28 gm 1 APPLIC TOPICAL (15:03)
[2021-10-02] MEDS: thrombin 5,000 unit SDV 5000 UNIT XX (15:58)
--- NOTE | 2021-10-02 16:33 | PM.OP ---
Operative Report Date of procedure: October 02, 2021 Pre-op Diagnosis: Right thyroid nodule with suspicious FNA biospy Post-op diagnosis: same Post-op Findings: Large right thyroid lobe nodule displacing the trachea to the left exposing the exophagus in the right neck in the deepest part of the incision The right recurrent nerve was not visually or electrically identified, but the vocal cord mobility was intact bilaterally at the end of the case The isthmus was 20mm thick over the trachea O/W normal intraoperative anterior neck/thyroid area exam Procedure Done: Right hemithyroidectomy Implants: None Specimens removed/disposition: Right thyroid lobe Pathology: Right thyroid lobe Surgeon: Jax Garcia Staff Development Coordinator Rn: Siri Santana Anesthesia: General Estimated blood loss (mL): 200 IV fluids (mL): 900 Complications: None Findings: Large right thyroid lobe mass involving the majority of the right thyroid lobe extending over the trachea past the midline The true vocal cord mobility was intact bilaterally at the end of the procedure The right recurrent laryngeal nerve was not identified visually or electrically because of the distorted anatomy O/W normal thyroid area/anterior neck exam Condition: stable Disposition: ICU Brief History: 71 yo wm with a h/o a right thyroid nodule with an FNA biopsy suspicious for malignancy. The patient desires a surgical biopsy. Procedure: The patient was identified in the preoperative holding area and was taken to the operating room where he was placed on the operating table in the supine position. Anesthesia was obtained with general endotracheal anesthesia after placing the nerve monitoring electrode on the endotracheal tube and placing it in the correct position. Once the patient was in the correct position a horizontal skin incision was drawn out 2 fingerbreadths above the sternal notch and the anterior neck which was then injected with lidocaine. The patient was then prepped and draped in the usual sterile fashion, and the incision was made with a 15 blade through the skin. The dissection proceeded down through the subcutaneous fat and platysma muscle until the strap muscles were identified. The strap muscles were then divided vertically and then dissected off of the thyroid gland. There was a large nodule in the thyroid extending from the right lobe over the midline and covering the trachea. The thyroid gland was then dissected free from the surrounding tissues with the Nirvana nerve monitoring hemostat in a sequential fashion on the thyroid capsule. The thyroid isthmus was dissected off of the trachea and was divided using the harmonic scalpel. A circumferential dissection was then carried out around the right thyroid lobe. The superior thyroid vessels were dissected free individually and and were ligated with ligaclips. As the dissection proceeded on the right thyroid capsule the microbipolar forceps were used to dissect the soft tissue off of the capsule of the thyroid. As mentioned above, there was a significant distortion with deviation of the trachea to the left and exposure of the esophagus immediately under the thyroid in the right thyroid bed. Despite multiple attempts, I was unable to identify the recurrent nerve or the vagus nerve electrically. There were at least 2 parathyroids were identified and preserved in place. The patient's right thyroid lobe was then removed and sent for permanent section analysis. The wound was then irrigated with a copious amount of normal saline and the wound was inspected for hemostasis which was achieved with bipolar cautery. At this point thrombin soaked Gelfoam pledgets were placed in the wound as well as Guru powder. A round drain was placed in the neck and the wound was then closed with interrupted 4 Monocryl sutures in a running 5-0 subcuticular suture. The skin was closed with Dermabond and Steri-Strips. At this point the procedure was terminated and control of the patient was returned to anesthesia where he underwent an uneventful reversal of anesthesia and extubation. At this point while he was still under anesthesia his vocal cord function was inspected with the glide scope which was found to be normal bilaterally. At this point the procedure was terminated and control of the patient was returned to anesthesia and he was taken to the recovery room in stable condition. There were no operative or anesthetic complications
[2021-10-02 18:37] LABS: Glucose Point of Care 147 mg/dL (70-110)
[2021-10-02] MEDS: docusate sodium 100 mg Capsule PO (18:45)
[2021-10-02] MEDS: carvedilol 6.25 mg Tablet PO (18:45)
[2021-10-02] MEDS: lactated ringers 1,000 ML 125 ML IV (18:45)
--- NOTE | 2021-10-02 18:58 | PM.CONSULT ---
Providers/Reason For Consult Consulting Physician/Specialty*: Hospitalist service Reason for Consult*: A. fib RVR Attending Physician: Jax Garcia MD Primary Care Provider: Leigh Arroyo MD History of Present Illness History of Present Illness Tom Germain is a 71 year old male status post right hemithyroidectomy for right thyroid nodule with suspicious FNA biopsy. He does have history of drug-eluting stent this year around July, follows up with Dr. Davidson, has been off anticoagulating agent for last 3 days, also has history of type 2 diabetes, hospital service was consulted for medical management postoperatively. Estimated blood loss during surgery 200 mL, he remained in A. fib during surgery, 900 mL of IV fluids were given. Patient was seen in the ICU, heart rate 130s, blood pressure 121/100 mmHg, no active chest pain, fever, dressing has mild dried blood around it, Patient is able to talk without any difficulty He stating that he gets skin rash to diltiazem and metoprolol dose decrease his blood pressure, For his A. fib RVR I would give him labetalol 10 mg IV push, check heart rate and blood pressure after 5 mg and repeat the dose If that fails can try as moderate keep an eye on blood pressure if he becomes hypertensive then we can try amiodarone but I would like to avoid amiodarone considering his thyroid abnormality Review of Systems Const: Denies: fever(s) Eyes: Denies: change in vision ENMT: Reports: throat pain Card: Denies: chest pain Resp: Denies: dyspnea GI: Denies: abdominal pain : Denies: flank pain Musc: Denies: neck pain Skin/Breast: Denies: skin tenderness Neuro: Denies: headache(s) Psych: Denies: anxiety Endo: Denies: polyuria Eyad/Lymph: Denies: easy bruising All/Imm: Denies: urticaria Meds/Allergies Home Medications and Allergies Home Medications Medication Instructions Recorded Confirmed Last Taken Type finasteride 5 mg tablet 5 mg PO DAILY tab 12/08/19 10/01/21 06/13/21 05:15 History meloxicam 15 mg tablet 15 mg PO DAILY tab 12/08/19 09/12/21 06/13/21 05:15 History metformin 500 mg tablet 500 mg PO BID 12/08/19 10/01/21 06/11/21 18:00 History rosuvastatin 10 mg tablet 10 mg PO DAILY tab 12/08/19 10/01/21 06/12/21 18:00 History nitroglycerin 0.4 mg sublingual 0.4 mg SUBLINGUAL Q5M PRN #30 tab 03/20/21 10/01/21 Unknown Rx tablet magnesium oxide 400 mg PO DAILY #90 tab 03/28/21 10/01/21 06/13/21 05:15 Rx potassium chloride 10 mEq 10 meq PO DAILY #90 cap 03/28/21 10/01/21 06/13/21 05:15 Rx capsule,extended release Glucosamine Chondroitin 550 cap PO DAILY 06/12/21 10/01/21 06/13/21 05:15 History alogliptin 25 mg PO DAILY 06/12/21 10/01/21 06/13/21 05:15 History clopidogrel 75 mg PO DAILY 30 Days #90 tab 06/14/21 10/01/21 09/29/21 Rx rivaroxaban 15 mg tablet 15 mg PO DAILY #90 tab 07/19/21 10/01/21 09/29/21 Rx cholecalciferol (vitamin D3) 25 25 mcg PO DAILY 09/04/21 10/01/21 Unknown History mcg (1,000 unit) capsule furosemide 20 mg tablet 20 mg PO QAM #14 tab 09/04/21 10/01/21 Unknown Rx carvedilol 6.25 mg tablet 6.25 mg PO BID tab 09/12/21 10/01/21 Unknown History lisinopril 5 mg tablet 2.5 mg PO DAILY tab 09/12/21 09/12/21 Unknown History Allergies Allergy/AdvReac Type Severity Reaction Status Date / Time diltiazem Allergy Unknown Verified 10/01/21 17:12 metoprolol Allergy Unknown Verified 10/01/21 17:12 Current Medications Current Medications Generic Name Dose Route Start Last Admin Trade Name Freq PRN Reason Stop Dose Admin Carvedilol 6.25 mg 10/02/21 18:21 10/02/21 18:45 Carvedilol 6.25 Mg Tablet PO 6.25 mg BID ARNALDO Administration Docusate Sodium 100 mg 10/02/21 18:21 10/02/21 18:45 Docusate Sodium 100 Mg Capsule PO 100 mg BID ARNALDO Administration Lactated Ringer's 1,000 mls @ 125 mls/hr 10/02/21 18:21 10/02/21 18:45 Lactated Ringers IV 125 mls/hr .Q8H ARNALDO Administration PFSH Acute PFSH: Medical History Atrial fibrillation Chronic cystitis Coronary artery disease Diabetes Dyslipidemia Erythematous bladder mucosa HTN (hypertension) Lower urinary tract symptoms Microhematuria PSVT (paroxysmal supraventricular tachycardia) PVC (premature ventricular contraction) Surgical History H/O right wrist surgery History of back surgery History of neck surgery S/P right coronary artery (RCA) stent placement Total knee replacement status BILATERAL Family History Mother , AI HER 80'S UNKNOWN CAUSE Angina at rest Denies family history of Diabetes Stroke Social History Alcohol intake: unknown Adopted: No Caregiver/support person: No Lives independently: No Household members: spouse Marital status: Current occupational status: retired Vitals/I&O/Wt Last Vital Signs Temp 97.8 F 10/02/21 14:20 Pulse 115 H 10/02/21 17:35 Resp 18 10/02/21 17:35 BP 112/90 10/02/21 17:35 Pulse Ox 95 10/02/21 17:35 10/02/21 10/02/21 10/02/21 06:59 14:59 22:59 Intake Total 60 / 60 Balance 60 / 60 Weight last 48 hrs Weight 123.377 kg Weight 123.377 kg Physical Exam Narrative: EXAM NARRATIVE: Const: : no acute distress, patient oriented x3, alert and well nourished GENERAL APPEARANCE: cooperative, comfortable, well kempt and well developed NUTRITIONAL APPEARANCE: obese ORIENTATION/CONSCIOUSNESS: Yes oriented to person, Yes oriented to place and Yes oriented to time HENMT: : normocephalic, atraumatic, hearing grossly normal bilaterally and external ears normal HEAD & SCALP: normocephalic and atraumatic FACE & SINUS: face symmetric EXTERNAL EAR: Yes external ears normal Eye: : Equal, round and reactive pupils present, EOMs intact bilaterally and conjunctivae normal ALIGNMENT: Yes alignment normal CONJUNCTIVA: Yes conjunctivae normal SCLERA: sclerae normal PUPIL: Yes Equal, round and reactive pupils present Neck/C-Spine: COMMON NORMALS: supple and no JVD; thyroidectomy scar no active bleeding, dried blood around the dressing negative for No carotid bruits Chest: normal inspection of the chest CHEST: Yes Symmetrical chest wall rise and No tenderness Resp: : normal respiratory effort, No use of accessory muscles and clear to auscultation bilaterally AUSCULTATION: clear to auscultation bilaterally, no crackles, no rales, no rhonchi and no wheezes Cardio: COMMON NORMALS: Variable S1-S2, A. fib RVR heart rate 130 l heart sound present, S2 normal heart sound present and Peripheral pulses 2+ throughout; negative for No gallops present (Cardio) JUGULAR VENOUS DISTENTION: no JVD PALPATION: normal PMI, no heave and no palpable S3 RATE: regular rate RHYTHM: regular rhythm HEART SOUNDS: S1 normal heart sound present, S2 normal heart sound present, no gallops and no murmurs BRUITS: no carotid bruits PERIPHERAL PULSES: Peripheral pulses 2+ throughout GI: COMMON NORMALS: Normal to inspection, nondistended, normoactive bowel sounds present, Soft to palpation and non-tender PALPATION: Yes Soft to palpation RECTAL EXAM: Yes deferred Neuro: COMMON NORMALS: patient oriented x3, no focal motor deficits and gait normal SENSORIUM/ORIENTATION: Yes alert, Yes oriented to person, Yes oriented to place and Yes oriented to time CRANIAL NERVES: Yes CN normal except as noted Psych: COMMON NORMALS: Normal thought process present APPEARANCE: Yes well kempt MOOD & AFFECT: Yes euthymic mood THOUGHT PROCESS: Normal thought process present THOUGHT CONTENT: Yes Normal thought content present ATTENTION/CONCENTRATION: Yes attention grossly intact MEMORY/COGNITION: Yes memory grossly intact INSIGHT: Good insight present (Psych) JUDGEMENT: Good judgement present (Psych) Skin: COMMON NORMALS: no rashes or lesions noted GENERAL SKIN EXAM: no rashes or lesions noted Urinary Catheter Management^: Rivas: Cath Placed During This Visit: yes Urinary Catheter Date of Insertion: 10/02/21 Urinary Catheter Time of Insertion: 13:45 A&P Assessment and plan (1) Atrial fibrillation: Status: Acute Qualifiers: Atrial fibrillation type: persistent (not longstanding) Qualified Code(s): I48.19 - Other persistent atrial fibrillation (2) Coronary artery disease: Status: Acute Qualifiers: Associated angina: with unspecified form of angina Coronary Disease-Associated Artery/Lesion type: [place] artery [place] vs. transplanted heart: [place] heart Qualified Code(s): I25.119 - Atherosclerotic heart disease of [place] coronary artery with unspecified angina pectoris (3) Dyslipidemia: Status: Acute (4) Diabetes: Status: Acute Qualifiers: Diabetes mellitus termite treater insulin use: without termite treater use Diabetes mellitus type: type 2 (5) H/O thyroidectomy: Status: Acute Additional A&P Information Postop day 0 status post right hemithyroidectomy Monitor for postoperative complications Full liquid diet with strict restriction on avoiding suction or use of straws for next 48 hours Monitor for hematoma, wound dehiscence Dried blood around the dressing, will check CBC postoperatively A. fib without RVR: Continue AV shantel blocking agents, start anticoagulating agent 24 hours after the procedure For now labetalol 10 mg IV push If heart rate stays above 110 can start esmolol drip in case of hypertension can use amiodarone but would like to avoid considering thyroid abnormality He is allergic to diltiazem, did develop skin rash in the past, he is not allergic to metoprolol patient stated that his blood pressure became very soft after taking metoprolol that is not a true allergy that would be considered side effect of the medication, patient denied anaphylactic reaction Type 2 diabetes: Moderate sliding scale diet started after the procedure Current glucose 154 Full code Full liq diet, avoid suction via straw, can use spoon feeding for next 48 hours DVT prophylaxis: Xarelto will suffice which will be initiated tomorrow, start SCDs postop Consult Attestations Medical Necessity Statement: As per ENT Time Spent in Patient Care: 16 - 35 minutes Coding Level of Care Code Acute Clinical Applications Specialist for Chg Fwd Diagnoses Atrial fibrillation I48.19 Atrial fibrillation type: persistent (not longstanding) Coronary artery disease I25.119 Associated angina: with unspecified form of angina Coronary Disease-Associated Artery/Lesion type: [place] artery [place] vs. transplanted heart: [place] heart Dyslipidemia E78.5 Diabetes E11.9 Diabetes mellitus custodial insulin use: without termite treater use Diabetes mellitus type: type 2 H/O thyroidectomy E89.0
[2021-10-02] MEDS: famotidine 20 mg/2 mL INJ IVP (19:31)
[2021-10-02] MEDS: morphine 4 mg/mL SDV 1 mL 2 MG IVP (19:38)
[2021-10-02 20:27] LABS: Glucose Point of Care 154 mg/dL (70-110)
[2021-10-02] MEDS: insulin lispro 100 unit/1 mL SUBCUT (20:29)
[2021-10-02] MEDS: metoprolol tartrate 1 mg/1 mL SDV 5 mL 5 MG IVP ×3 (20:49→21:07)
[2021-10-02] MEDS: carvedilol 12.5 mg Tablet PO (21:00)
[2021-10-02] MEDS: ceFAZolin 3,000 MG in sodium chloride 0.9% (100 ml) 100 ML 200 MG IV (21:01)
[2021-10-02 21:04] LABS: Basophils % 0.2 %; Eosinophils % 0.1 %; Hematocrit 40.6 % (42.0-52.0); Hemoglobin 13.3 g/dL (11.7-16.6); Lymphocytes # 0.6 10^3/uL (0.8-4.8); Lymphocytes % 4.4 %; Mean Corpuscular HGB Conc 32.8 g/dL (30.0-36.0); Mean Corpuscular Hemoglobin 28.7 pg (28.0-34.0); Mean Corpuscular Volume 87.5 fl (80-94); Mean Platelet Volume 9.8 fL (7.4-10.4); Monocytes # 0.2 10^3/uL (0.2-0.9); Monocytes % 1.5 %; Neutrophils # 12.19 10^3/uL (1.8-7.7); Neutrophils % 93.4 %; Nucleated Red Blood Cells % 0 %; Platelet Count 217 10^3/cmm (130-400); Red Blood Count 4.64 10^6/uL (4.1-5.3); Red Cell Distribution Width 13.4 % (12.1-15.1)
--- NOTE | 2021-10-02 21:20 | PC.NURSE ---
Dr. Mojica bedside assessing patient. Patient is in afib with elevated heart rate. Gave verbal orders to administer 10mg of Metoprolol. If that did not sustain heart rate below 110 to start an esmolol drip.
--- NOTE | 2021-10-02 21:28 | PC.NURSE ---
Bedside rounding with Dr. 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 Verbal orders for CL diet with spoon and not through straw. This nurse reported new orders to primary nurse with Dr. Mojica at nurses station.
[2021-10-02] MEDS: HYDROcodone-acetaminophen 5-325 mg Tablet 1 TAB PO (22:32)
[2021-10-02] MEDS: esmolol drip 2,500 MG/250 ML PREMIX 37.01 MG IV (22:35)
[2021-10-03] VITALS (10 sets, daily range): BP systolic 91–121; BP diastolic 61–85; PULSE 86–137; RESP 16–27; TEMP 35.9–36.7; O2SAT 91–95
[2021-10-03] MEDS: esmolol drip 2,500 MG/250 ML PREMIX 74.03 MG IV ×3 (01:49→08:50)
[2021-10-03] MEDS: morphine 4 mg/mL SDV 1 mL 2 MG IVP (02:20)
--- NOTE | 2021-10-03 04:44 | PC.NURSE ---
Patient remains in afib. Esmolol still running. Dr. Garcia rounding this morning, stated incision looks good and plans to send patient home today as long as hospitalist agrees and signs off.
--- NOTE | 2021-10-03 04:45 | PC.NURSE ---
I&O very good this shift. Clear liquid diet, 960mL of Chicken broth and 4 little sprites for intake.
--- NOTE | 2021-10-03 04:47 | P.PN_ITS ---
Subjective Subjective: Interval history: 71 yo wm who is POD #1 s/p right hemithyroidectomy who is doing well by his report. He has had some pain that is well managed and is taking po well. He is o/w without c/o. Vitals/I&O/Wt Last Vital Signs Temp 97.8 F 10/02/21 14:20 Pulse 117 H 10/02/21 21:44 Resp 19 H 10/02/21 19:05 BP 131/83 10/02/21 19:05 Pulse Ox 94 10/02/21 19:51 10/02/21 10/02/21 10/03/21 14:59 22:59 06:59 Intake Total 60 / 60 456.25 / 516.25 1386.919 / 1903.169 Output Total 150 / 150 360 / 510 Balance 60 / 60 306.25 / 366.25 1026.919 / 1393.169 Weight last 48 hrs Weight 123.377 kg Weight 123.377 kg Physical Exam Const: COMMON NORMALS: no acute distress, patient oriented x3, healthy appearing and alert HENMT: COMMON NORMALS: normocephalic and Normal external nose present HEAD & SCALP: normocephalic FACE & SINUS: normal facial exam NOSE: Normal external nose present Eye: COMMON NORMALS: EOMs intact bilaterally and conjunctivae normal CONJUNCTIVA: Yes conjunctivae normal Neck/C-Spine: COMMON NORMALS: no lymphadenopathy THYROID: other (The thyroidectomy incision is intact and without swelling or fluctuance.) Chest: COMMONS NORMALS: normal inspection of the chest and normal palpation of entire chest wall Resp: COMMON NORMALS: normal respiratory effort and clear to auscultation bilaterally AUSCULTATION: clear to auscultation bilaterally Cardio: COMMON NORMALS: No murmurs present (Cardio) Neuro: COMMON NORMALS: patient oriented x3 SENSORIUM/ORIENTATION: Yes alert Urinary Catheter Management^: Rivas: Cath Placed During This Visit: yes Urinary Catheter Date of Insertion: 10/02/21 Urinary Catheter Time of Insertion: 13:45 Data : 10/02/21 20:57 A&P Additional A&P Information Impression: 1) POD #1 s/p right hemithyroidectomy doing well from this standpoint. His voice is unchanged from preop and he is eating well. 2) Cardiac: See Dr. Mojica's notes. I appreciate Dr. Mojica's assistance with Mr. Germain. Plan: 1) Closed suction drainage, advance to regular diet, anticipate d/c this afternoon if cleared by Dr. Mojica. We will restart Eloquis today. 2) As per Dr. Mojica. Attestations Medical Necessity Statement*: The patient requires admission for observation of his airway and cardiac status. Coding Level of Care Code Acute Electronic Design Engineer for Blair Harris
[2021-10-03 05:00] LABS: Basophils % 0.1 %; Hematocrit 35.9 % (42.0-52.0); Hemoglobin 11.7 g/dL (11.7-16.6); Lymphocytes # 0.7 10^3/uL (0.8-4.8); Lymphocytes % 6.1 %; Mean Corpuscular HGB Conc 32.6 g/dL (30.0-36.0); Mean Corpuscular Hemoglobin 28.6 pg (28.0-34.0); Mean Corpuscular Volume 87.8 fl (80-94); Mean Platelet Volume 10.3 fL (7.4-10.4); Monocytes # 0.3 10^3/uL (0.2-0.9); Monocytes % 2.7 %; Neutrophils # 11.11 10^3/uL (1.8-7.7); Neutrophils % 90.9 %; Nucleated Red Blood Cells % 0 %; Platelet Count 221 10^3/cmm (130-400); Red Blood Count 4.09 10^6/uL (4.1-5.3); Red Cell Distribution Width 13.4 % (12.1-15.1); White Blood Count 12.2 10^3/uL (4.0-10.0)
--- NOTE | 2021-10-03 05:06 | PC.NURSE ---
Dr. Garcia rounding this morning. Assessed patient, gave orders to start Xarelto back at 2100 this evening, due to patient taking the medication at night time at home. Also gave orders to advance to regular diet. Continue care.
[2021-10-03] MEDS: FUROsemide 20 mg Tablet PO (05:10)
[2021-10-03] MEDS: ceFAZolin 3,000 MG in sodium chloride 0.9% (100 ml) 100 ML 200 MG IV (05:10)
[2021-10-03 05:26] LABS: Alanine Aminotransferase 9 U/L (0-41); Albumin Level 3.6 g/dL (3.5-5.2); Alkaline Phosphatase 56 IU/L (40-130); Anion Gap 15.4 (5-19); Aspartate Amino Transferase 11 U/L (0-40); Blood Urea Nitrogen 27 mg/dL (8-23); Calcium 7.9 mg/dL (8.5-10.5); Carbon Dioxide 24 mmol/L (22-29); Chloride 100 mmol/L (98-107); Globulin 2.1 g/dL (1.3-4.6); Glucose 153 mg/dL (65-115); Magnesium 1.7 mg/dL (1.7-2.3); Osmolality Calculated 288 mOsm/kg (285-295); Potassium 4.4 mmol/L (3.5-5.1); Sodium 135 mmol/L (136-145); Total Bilirubin 0.3 mg/dL (0.15-1.2); Total Protein 5.7 g/dL (6.6-8.7)
[2021-10-03] MEDS: famotidine 20 mg/2 mL INJ IVP (06:01)
[2021-10-03 07:39] LABS: Glucose Point of Care 163 mg/dL (70-110)
[2021-10-03] MEDS: insulin lispro 100 unit/1 mL SUBCUT ×2 (07:57→11:54)
[2021-10-03] MEDS: calcium gluconate 0.1 gm/mL 10% SDV 10mL 1 GM IVP (07:57)
[2021-10-03] MEDS: lactated ringers 1,000 ML 75 ML IV (07:58)
--- NOTE | 2021-10-03 08:51 | PC.PHAR ---
PTS JORGE VERIFIED THE PTS MEDICATIONS-PTS [facility] MED LIST HAS AMIODARONE,ZYRTEC,ISOSORBIDE,AND METOPROLOL ACTIVE MEDICATIONS PTS STATE THE PT IS NOT TAKING THOSE MEDICATIONS-PTS STATES THE PT IS TAKES THE MEDICATIONS ENTERED-NOTES ARE MADE IN THE PHARMACY COMMENTS
[2021-10-03] MEDS: finasteride 5 mg Tablet PO (09:28)
[2021-10-03] MEDS: atorvastatin 40 mg Tablet PO (09:28)
[2021-10-03] MEDS: cholecalciferol (vitamin D3) 1,000 unit Tablet 1000 UNIT PO (09:29)
[2021-10-03] MEDS: sennosides-docusate Tablet 1 TAB PO (09:29)
[2021-10-03] MEDS: docusate sodium 100 mg Capsule PO (09:30)
[2021-10-03] MEDS: potassium chloride ER 10 mEq Tablet PO (09:30)
[2021-10-03] MEDS: magnesium oxide 400 mg tablet PO (09:30)
[2021-10-03] MEDS: carvedilol 25 mg Tablet PO (09:31)
--- NOTE | 2021-10-03 09:43 | PC.CHAP ---
Pastoral Care Encounter/Spiritual Assessment Type of Contact [] Declined sql database administrator visit [] Patient/Family/Request visit [] Outpatient visit [] Follow-up visit [] Physician referral [] Code/Alert [x] Routine visit [] Staff referral [] Actively dying [] Patient sleeping [] Family support [] [] Out of room [] Palliative care [] [] Receiving care in room [] Pre-surgical visit [] Trauma [] Long length of stay [x] ICU visit [x] Other: seems like an angry man.. Relational/Emotional Strength [] Patient feels connected with others/family/visitors/staff [] Distress [] Loneliness/isolation [] Abandonment Spirituality of Patient [] Person of Diane [] Attends [employer] of their Diane [] Believes in Prayer [] Reads Bible or Congregation materials [] There are Spiritual issues to be addressed [place] Interventions [x] Prayer [] Active listening [] Non-anxious presence [] Spiritual/emotional support [] Crisis/trauma care [] Spiritual counseling [] Bereavement support [] Provided bereavement packet [] Provided Bible/devotional materials [] Provided toy/stuffed animal, coloring book to patient or family member [] Provided Communion [] Anointing/[place] [] Salvation [x] Completed spiritual assessment [] Other: Impact on Illness or Injury [] Angry [] Fearful [] Anxious [] Often cries [] Exhaustion [] Unable to work [] Unable to attend mandaeism [] Unable to walk/stand [] Unable to read [] Unable to drive [] Unable to eat/drink [] Unable to sleep [] Unable to be with family [] Patient intubated [] Other: Summary Time spent with patient
[2021-10-03 11:48] LABS: Glucose Point of Care 182 mg/dL (70-110)
[2021-10-03] MEDS: HYDROcodone-acetaminophen 5-325 mg Tablet 1 TAB PO (13:08)
--- NOTE | 2021-10-03 13:35 | P.PN_ITS ---
Subjective Subjective: Interval history: Patient was seen and examined. At 11 PM esmolol was started yesterday, patient is still in A. fib RVR I have increased Coreg dose plan to titrate off as below and if he becomes hypotensive would opt for amiodarone No complaints, hemoglobin stable, diet advanced by the ENT surgeon Vitals/I&O/Wt Last Vital Signs Temp 96.7 F L 10/03/21 09:30 Pulse 115 H 10/03/21 09:30 Resp 21 H 10/03/21 09:30 BP 92/68 10/03/21 09:30 Pulse Ox 92 10/03/21 09:30 10/02/21 10/03/21 10/03/21 22:59 06:59 14:59 Intake Total 456.25 / 516.25 1732.452 / 2248.702 2628.157 / 2628.157 Output Total 150 / 150 360 / 510 1040 / 1040 Balance 306.25 / 366.25 1372.452 / 1596.308 8562.157 / 1588.157 Weight last 48 hrs Weight 123.377 kg Weight 123.377 kg Physical Exam Narrative: EXAM NARRATIVE: Patient was sitting in his chair eating breakfast Saturating well on room air Mild 10 to 20 cc of bleeding noticed in the drain Abdomen soft Lower extremity venous stasis dermatitis Variable S1-S2 A. fib RVR Hemodynamically stable EOMI, PERRLA Hemithyroidectomy scar with good granulation tissue Urinary Catheter Management^: Rivas: Cath Placed During This Visit: yes Urinary Catheter Date of Insertion: 10/02/21 Urinary Catheter Time of Insertion: 13:45 Data : 10/03/21 04:10 10/03/21 04:10 A&P Assessment and plan (1) H/O thyroidectomy: Status: Acute (2) Atrial fibrillation: Status: Acute Qualifiers: Atrial fibrillation type: persistent (not longstanding) Qualified Code(s): I48.19 - Other persistent atrial fibrillation (3) Dyslipidemia: Status: Acute (4) Diabetes: Status: Acute Qualifiers: Diabetes mellitus type: type 2 Diabetes mellitus chcf insulin use: without chcf use (5) HTN (hypertension): Status: Acute Qualifiers: Hypertension type: essential hypertension Qualified Code(s): I10 - Essential (primary) hypertension Additional A&P Information Postop day 1 status post right hemithyroidectomy No postoperative complications Hemoglobin stable he has stayed afebrile Hemodynamically stable A. fib RVR: As noted drip was started at 11 PM on 10/02 which was discontinued on 10/03 around 10 AM He was given increased dose of Coreg he does not want to use metoprolol or Cardizem, However he did not develop any kind of rash to esmolol He is not allergic to beta-donald:- he is stating that he became hypotensive and developed skin rash to diltiazem which was 2 years ago Patient does not want to stay today and is anxious to return home I would recommend close follow-up with technical instructor course developer as he does need optimization of AV shantel blocking agent ( digoxin versus amiodarone )if he does not want to use other AV shantel blocking agents Currently his blood pressure is stable there was 1 reading of 92/68 mmHg however esmolol drip has been discontinued current blood pressure 112/70 mmhg Potassium of 4, will give p.o. magnesium, magnesium 1.7 Hx of ADY: To continue plavix and xeralto Diet has been advanced by ENT, Anticoagulation continued 24 hours after the procedure Full code My concerns conveyed to the patient and ENT Dr. Mary, ICU nurse updated Attestations Medical Necessity Statement*: as per ENT Time Spent in Patient Care: 16 - 35 minutes Coding Level of Care Code Acute Painting Instructor for Chg Fwd Diagnoses H/O thyroidectomy E89.0 Atrial fibrillation I48.19 Atrial fibrillation type: persistent (not longstanding) Dyslipidemia E78.5 Diabetes E11.9 Diabetes mellitus type: type 2 Diabetes mellitus buttermaker helper insulin use: without chcf use HTN (hypertension) I10 Hypertension type: essential hypertension
--- NOTE | 2021-10-03 16:24 | PM.PN ---
Subjective Subjective: Interval history: 71 yo wm who is POD #1 s/p Right hemithyroidectomy who is doing well by his report. The patient reports that his voice is unchanged from preop, he is having minimal pain, and he is able to eat without difficulty. The patient is o/w without c/o. Vitals/I&O/Wt Last Vital Signs Temp 96.7 F L 10/03/21 09:30 Pulse 101 H 10/03/21 14:00 Resp 21 H 10/03/21 09:30 BP 92/68 10/03/21 09:30 Pulse Ox 92 10/03/21 09:30 10/03/21 10/03/21 10/03/21 06:59 14:59 22:59 Intake Total 1732.452 / 2248.702 2628.157 / 2628.157 Output Total 360 / 510 1040 / 1040 275 / 1315 Balance 1372.452 / 4888.482 0349.157 / 1588.157 -275 / 1313.157 Weight last 48 hrs Weight 123.377 kg Weight 123.377 kg Physical Exam Const: COMMON NORMALS: no acute distress, patient oriented x3 and healthy appearing HENMT: COMMON NORMALS: atraumatic and Normal external nose present HEAD & SCALP: atraumatic FACE & SINUS: normal facial exam NOSE: Normal external nose present Eye: COMMON NORMALS: EOMs intact bilaterally and conjunctivae normal CONJUNCTIVA: Yes conjunctivae normal Neck/C-Spine: COMMON NORMALS: no lymphadenopathy GENERAL: Yes other (The neck incision is intact and without erythema or swelling.) Neuro: COMMON NORMALS: patient oriented x3 Urinary Catheter Management^: Rivas: Cath Placed During This Visit: yes Urinary Catheter Date of Insertion: 10/02/21 Urinary Catheter Time of Insertion: 13:45 Data : 10/03/21 04:10 10/03/21 04:10 A&P Additional A&P Information Impression: 1) 71 yo wm who is POD #1 s/p right hemithyroidectomy doing well from this standpoint 2) Atrial Fibrillation - see Dr. Mojica's note Plan: 1) Continued closed suction drainage; [place] () tabs: take 1-2 tabs po Q5 hours prn pain, #25 tabs, NR; the patient is to f/u in my office on 10/05/21 @ 13:00 hours; he is to contact me for any problems; he is to restart Xarelto with this evening's dose 2) See Dr. Mojica's notes Attestations Medical Necessity Statement*: The patient required an overnight stay for airway observation. Coding Level of Care Code Acute Transition Assistant for Blair Harris
--- NOTE | 2021-10-03 18:22 | PC.NURSE ---
Discharge Note Patient discharged home via wheelchair accompanied by spouse. Discharge instructions reviewed with patient and/or motor vehicle representative. Mobile pharmacy medications and/or prescriptions provided. Belongings/home medications returned. Patient verbalized understanding about drain care, medications, pending results, and followup.
== END 2021-10-03 17:40 | disposition home or self-care (01) ==
LOC: ICU 16:53
PROVIDERS: Internal Medicine; Admitting Provider Specialist; PCP Family Medicine; Visit Provider Specialist
PROC: (CPT 60225; principal; 2021-10-02 13:00)
DX: E04.1 Nontoxic single thyroid nodule (principal); I10 Essential (primary) hypertension; E11.9 Type 2 diabetes mellitus without complications; E78.5 Hyperlipidemia, unspecified; I25.119 Atherosclerotic heart disease of native coronary artery with unspecified angina pectoris; I48.19 Other persistent atrial fibrillation; Z79.01 Long term (current) use of anticoagulants
CPT/HCPCS: 60225; 12345; 36415; 36416; 51702; 80053; 82962; 83735; 85025; 88307; 94664; 96365; 96372; G0378; J0171; J0330; J0610; J0690; J1100; J1815; J2001; J2270; J2405; J2704; J3010; J3490; J7030

== ENCOUNTER 2021-10-31 13:05 | Outpatient (RCR) | payer OTHER, SELFPAY | END 2021-11-30 23:59 | disposition home or self-care (01) | LOC: CR 13:05 | PROVIDERS: PCP Family Medicine; Referring Provider Internal Medicine Cardiovascular Disease; Visit Provider Internal Medicine Cardiovascular Disease | DX: Z95.5 Presence of coronary angioplasty implant and graft (principal) | CPT/HCPCS: 93798 ==

== ENCOUNTER 2021-12-03 09:01 | Outpatient (RCR) | payer OTHER, SELFPAY | END 2021-12-31 23:59 | disposition home or self-care (01) | LOC: CR 09:01 | PROVIDERS: PCP Family Medicine; Referring Provider Internal Medicine Cardiovascular Disease; Visit Provider Internal Medicine Cardiovascular Disease | DX: Z95.5 Presence of coronary angioplasty implant and graft (principal) | CPT/HCPCS: 93798 ==

== ENCOUNTER 2022-01-08 08:38 | Outpatient (RCR) | payer SELFPAY | END 2022-01-28 23:59 | disposition home or self-care (01) | LOC: CR 08:38 | PROVIDERS: PCP Family Medicine; Referring Provider Internal Medicine Cardiovascular Disease; Visit Provider Internal Medicine Cardiovascular Disease | DX: Z95.5 Presence of coronary angioplasty implant and graft (principal) ==

== ENCOUNTER 2022-01-29 11:54 | Outpatient (RCR) | payer SELFPAY | END 2022-02-28 23:59 | disposition home or self-care (01) | LOC: CR 11:54 | PROVIDERS: PCP Family Medicine; Referring Provider Internal Medicine Cardiovascular Disease; Visit Provider Internal Medicine Cardiovascular Disease | DX: Z95.5 Presence of coronary angioplasty implant and graft (principal) ==

== ENCOUNTER → 2022-02-14 11:39 | Outpatient (BNVA) | payer OTHER, SELFPAY | PROVIDERS: PCP Family Medicine; Referring Provider Family Medicine; Visit Provider Physician Assistant | DX: M54.9 Dorsalgia, unspecified (principal); M47.816 Spondylosis without myelopathy or radiculopathy, lumbar region | CPT/HCPCS: 72110 ==

== ENCOUNTER → 2022-02-21 10:04 | Outpatient (BNVA) | payer OTHER, SELFPAY | PROVIDERS: PCP Family Medicine; Referring Provider Family Medicine; Visit Provider Anesthesiology Pain Medicine | DX: G89.29 Other chronic pain (principal); M54.50 Low back pain, unspecified; Z87.891 Personal history of nicotine dependence; Z79.891 Long term (current) use of opiate analgesic | CPT/HCPCS: 99204 ==

== ENCOUNTER 2022-03-05 12:58 | Outpatient (RCR) | payer SELFPAY | END 2022-03-30 23:59 | disposition home or self-care (01) | LOC: CR 12:58 | PROVIDERS: PCP Family Medicine; Referring Provider Internal Medicine Cardiovascular Disease; Visit Provider Internal Medicine Cardiovascular Disease | DX: Z95.5 Presence of coronary angioplasty implant and graft (principal) ==

== ENCOUNTER 2022-03-06 06:00 | Outpatient (RCR) | payer OTHER, SELFPAY | END 2022-03-30 23:59 | disposition home or self-care (01) | LOC: SPT 06:00 | PROVIDERS: PCP Family Medicine; Referring Provider Family Medicine; Visit Provider Family Medicine | DX: M54.9 Dorsalgia, unspecified (principal) | CPT/HCPCS: 97161 ==

== ENCOUNTER 2022-03-31 06:00 | Outpatient (RCR) | payer OTHER, SELFPAY | END 2022-04-30 23:59 | disposition home or self-care (01) | LOC: SPT 06:00 | PROVIDERS: PCP Family Medicine; Referring Provider Family Medicine; Visit Provider Family Medicine | DX: M54.59 Other low back pain (principal) | CPT/HCPCS: 97113 ==

== ENCOUNTER 2022-04-01 12:33 | Outpatient (RCR) | payer SELFPAY | END 2022-04-30 23:59 | disposition home or self-care (01) | LOC: CR 12:33 | PROVIDERS: PCP Family Medicine; Referring Provider Internal Medicine Cardiovascular Disease; Visit Provider Internal Medicine Cardiovascular Disease | DX: Z95.5 Presence of coronary angioplasty implant and graft (principal) ==

== ENCOUNTER 2022-05-01 06:00 | Outpatient (RCR) | payer OTHER, SELFPAY | END 2022-05-30 23:59 | disposition home or self-care (01) | LOC: SPT 06:00 | PROVIDERS: PCP Family Medicine; Referring Provider Family Medicine; Visit Provider Family Medicine | DX: M54.50 Low back pain, unspecified (principal) | CPT/HCPCS: 97113 ==

== ENCOUNTER 2022-05-01 09:40 | Outpatient (RCR) | payer SELFPAY | END 2022-05-30 23:59 | disposition home or self-care (01) | LOC: CR 09:40 | PROVIDERS: PCP Family Medicine; Referring Provider Internal Medicine Cardiovascular Disease; Visit Provider Internal Medicine Cardiovascular Disease | DX: Z95.5 Presence of coronary angioplasty implant and graft (principal) ==

== ENCOUNTER 2022-05-31 | Outpatient (RCR) | payer OTHER, SELFPAY | END 2022-06-30 23:59 | disposition home or self-care (01) | LOC: SPT | PROVIDERS: PCP Family Medicine; Referring Provider Family Medicine; Visit Provider Family Medicine | DX: M54.50 Low back pain, unspecified (principal) | CPT/HCPCS: 97110 ==

== ENCOUNTER → 2022-07-17 11:55 | Outpatient (BNVA) | payer OTHER, SELFPAY | PROVIDERS: PCP Family Medicine; Visit Provider Internal Medicine Cardiovascular Disease | DX: I49.3 Ventricular premature depolarization (principal); I47.1 Supraventricular tachycardia; I48.91 Unspecified atrial fibrillation; E11.9 Type 2 diabetes mellitus without complications; I10 Essential (primary) hypertension; I25.10 Atherosclerotic heart disease of native coronary artery without angina pectoris; E78.5 Hyperlipidemia, unspecified | CPT/HCPCS: 36415; 80053; 80061; 83036; 84443; 85025; 99214 ==

== ENCOUNTER 2022-07-23 14:25 | Outpatient (CLI) | payer OTHER, SELFPAY ==
--- NOTE | 2022-07-23 15:20 | ECG_ITS ---
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 Measurements Intervals [place] Rate: 89 P: [place]: QRS: 33 QRSD: 101 T: 23 QT: 364 QTc: 444 Interpretive Statements ATRIAL FIBRILLATION WITH ABERRANT CONDUCTION OR VENTRICULAR PREMATURE COMPLEXES LOW QRS VOLTAGE IN PRECORDIAL LEADS [QRS DEFLECTION < 1.0 mV IN CHEST LEADS] ABNORMAL RHYTHM ECG Compared to ECG 09/14/2021 12:04:24 Ventricular premature complex(es) now present Aberrant conduction of supraventricular beat(s) now present Low QRS voltage now present Electronically Signed On 07-23-2022 17:51:41 CDT by Connor Ramirez M.D. [id number]
== END 2022-07-23 14:26 | disposition home or self-care (01) ==
LOC: RT 14:27
PROVIDERS: PCP Family Medicine; Visit Provider Specialist
DX: E04.2 Nontoxic multinodular goiter (principal)
CPT/HCPCS: 93005

== ENCOUNTER 2022-07-30 16:00 | Observation (INO) | payer OTHER, SELFPAY ==
[2022-07-29 08:48] VITALS: BMI 38.0
[2022-07-30] VITALS (18 sets, daily range): BP systolic 90–140; BP diastolic 66–97; PULSE 77–128; RESP 16–32; TEMP 36.2–36.6; O2SAT 88–97; BMI 38.0
[2022-07-30] MEDS: sodium chloride 0.9% 1,000 ML 30 ML IV (10:28)
[2022-07-30 10:32] LABS: Glucose Point of Care 100 mg/dL (70-110)
--- NOTE | 2022-07-30 10:43 | ANES.PREANE2 ---
Pre-Anesthetic Assessment Height/Weight: Height 1.78 m Weight 120.202 kg Temp Pulse Resp BP Pulse Ox O2 Del Method 97.1 F L 83 16 140/97 97 07/30/22 09:10 07/30/22 09:10 07/30/22 09:10 07/30/22 09:10 07/30/22 09:10 07/30/22 09:39 Preop Diagnosis: Right thyroid nodule with suspicious FNA biospy Operation Date: 07/30/22 10:15 Proposed Procedures p Total Thyroidectomy/Completion of right thyroidectomy [id number](Not Applicable) - Jax Garcia MD Familial anesthetic complications: none Was Beta Dipesh taken within 24 hours: N/A Was Clonidine taken within 24 hours: N/A Last intake: Intake Last Liquid Date 07/29/22 Last Liquid Time 20:30 Last Solid Date 07/29/22 Last Solid Time 20:30 Social No alcohol and No tobacco Exam alert, oriented x 3, clear to auscultation bilaterally and regular rate & rhythm Airway Submandibular: within normal limits Cervical ROM: within normal limits Mallampati: Class II Comments: Comments: missing teeth Pulmonary None reported CV/HEM Atrial Fibrillation, Arrythmia (pSVT ), Coronary Artery Disease (s/p ADY to RCA in 05/2021.) and Hypertension From Doctor Stuart note 07/17/22 06/13/2021 Coronary Angiogram Conclusions ? 1. Severe mid RCA stenosis ? 2. s/p successful revascularization with ADY x1. ? 3. Mid Right Coronary Artery was treated with a Balloon, and Drug Eluting Stent. TTE (04/27/21) CONCLUSIONS ?1. This is a technically difficult study. Ultrasound enhancing agent was used as per protocol. ?2. Normal left ventricular cavity size and systolic function. ?Left ventricular ejection fraction is estimated at 65-70 %. No regional wall motion abnormalities. ?3. Normal right ventricular size and systolic function. ?4. No prior similar studies to compare. Lexiscan Sestamibi MPI (04/12/21) IMPRESSIONS ?1.? Small size reversible perfusion abnormality of apical inferior and apical lateral schneider on stress images. ?2.? This is likely suggestive of small area of ischemia in left anterior descending/circumflex artery territory. ?3.? Overall left ventricular systolic function is normal without regional wall motion abnormalities. ?4.? The left ventricular ejection fraction is normal with a value of 68%. ?5.? No prior similar studies to compare. chronic cystitis Hepatic None reported GI Gastroesophageal Reflux Disease (Well controlled ) Metabolic Diabetes Mellitus, Hyperlipidemia and Thyroid Disease Musc/skel Lower Back Pain Neuropsych None reported Anesthetic Plan ASA status: 3 Anesthesia: Anesthesia Evaluation and General Other: We discussed risk and benefits of general anesthesia including PONV, sore throat (sometimes severe), corneal abrasion, positioning and peripheral nerve injuries, life threatening allergic reaction, post operative ICU admission requiring prolonged intubation, aspiration, stroke, heart attack, , and rare incidences of recall. Patient consents to proceed with general anesthesia. Risk of > 500 ml blood loss (7ml/kg in children): No Medications/Allergies Home Medications Medication Instructions Recorded Confirmed Last Taken Type finasteride 5 mg tablet 5 mg PO DAILY 12/08/19 07/30/22 07/29/22 07:00 History metformin 500 mg tablet 500 mg PO BID 12/08/19 07/30/22 07/29/22 History rosuvastatin 10 mg tablet 5 mg PO DAILY 12/08/19 07/30/22 07/29/22 History magnesium oxide 400 mg PO DAILY #90 tabs 03/28/21 07/30/22 07/29/22 Rx potassium chloride 10 mEq 10 meq PO DAILY #90 caps 03/28/21 07/30/22 07/29/22 Rx capsule,extended release alogliptin 25 mg tablet 25 mg PO QAM 06/12/21 07/30/22 07/29/22 07:00 History glucosamine sulf dipot 550 cap PO DAILY 06/12/21 07/30/22 07/29/22 History chlr,msm,chond 550 mg-C 30 mg-lisa 1 mg capsule (Glucosamine Chondroitin) cholecalciferol (vitamin D3) 25 25 mcg PO QAM 09/04/21 07/30/22 07/29/22 07:00 History mcg (1,000 unit) capsule furosemide 20 mg tablet 20 mg PO QAM #14 tabs 09/04/21 07/30/22 07/29/22 Rx albuterol sulfate 90 mcg/actuation 2 puff inhalation Q4H PRN 10/03/21 07/30/22 Unknown History aerosol inhaler Shortness Of Breath aspirin 81 mg tablet,delayed 81 mg PO DAILY 02/07/2207/29/22 07/29/22 07:00 History release (Adult Low Dose Aspirin) rivaroxaban 20 mg tablet (Xarelto) 20 mg PO DAILY #90 tabs 01/08/22 07/29/22 07/24/22 Rx amiodarone 200 mg tablet 200 mg PO BID 02/21/22 07/30/22 07/30/22 06:00 History losartan 25 mg tablet 25 mg PO DAILY #10 tabs 07/17/22 07/30/22 07/30/22 07:00 Rx nitroglycerin 0.4 mg sublingual 0.4 mg sublingual Q5M PRN chest 07/17/22 07/29/22 Unknown Rx tablet pain #30 tabs Allergies Allergy/AdvReac Type Severity Reaction Status Date / Time diltiazem Allergy Unknown Verified 02/21/22 11:01 metoprolol Allergy Unknown Verified 02/21/22 11:01 Current Medications Generic Name Dose Route Start Last Admin Trade Name Freq PRN Reason Stop Dose Admin Sodium Chloride 1,000 mls @ 30 mls/hr 07/30/22 09:00 07/30/22 10:28 Sodium Chloride 0.9% IV 07/31/22 08:59 30 mls/hr .Q24H ARNALDO Administration PFSH Anesthesia Medical History Atrial fibrillation Chronic cystitis Coronary artery disease Diabetes Dyslipidemia Erythematous bladder mucosa HTN (hypertension) Lower urinary tract symptoms Microhematuria PSVT (paroxysmal supraventricular tachycardia) PVC (premature ventricular contraction) Surgical History H/O right wrist surgery H/O thyroidectomy History of back surgery History of neck surgery S/P right coronary artery (RCA) stent placement Total knee replacement status BILATERAL Family History Mother , AI HER 80'S UNKNOWN CAUSE Angina at rest Denies family history of Diabetes Stroke Social History Smoking and tobacco status: former smoker Alcohol intake: unknown Adopted: No Caregiver/support person: No Lives independently: No Household members: spouse Marital status: Current occupational status: retired Data Anesthesia : 07/30/22 10:10 Cardiac Studies: Echocardiogram 04/27/21 Sestamibi Stress Test (Cardiology) 04/12/21
[2022-07-30 10:50] LABS: Anion Gap 13.4 (5-19); Blood Urea Nitrogen 17 mg/dL (8-23); Calcium 8.8 mg/dL (8.5-10.5); Carbon Dioxide 26 mmol/L (22-29); Chloride 104 mmol/L (98-107); Creatinine Clr Calc Pharmacy 105.2801; Glucose 99 mg/dL (65-115); Osmolality Calculated 290 mOsm/kg (285-295); Potassium 4.4 mmol/L (3.5-5.1); Sodium 139 mmol/L (136-145)
--- NOTE | 2022-07-30 11:49 | W.PM.OPSUD ---
Surgery/Procedure H&P Update DATE OF PROCEDURE: July 30, 2022 DATE H&P PERFORMED: 07/22/22 H&P UPDATE INFORMATION: I have reviewed H&P completed within last 30 days PREOP DIAGNOSIS: Right thyroid nodule with suspicious FNA biospy PLANNED PROCEDURE: Operation Date: 07/30/22 10:15 Proposed Procedures p Total Thyroidectomy/Completion of right thyroidectomy [id number](Not Applicable) - Jax Garcia MD
[2022-07-30] MEDS: ceFAZolin 2,000 MG in sodium chloride 0.9% (plus) 50 ML 100 MG IV ×2 (12:02→20:18)
[2022-07-30] MEDS: EPINEPHrine 1 mg/mL INJ 2 MG XX (13:35)
[2022-07-30] MEDS: ceFAZolin 1,000 mg SDV 1000 MG IRRIGATION (13:37)
[2022-07-30] MEDS: neomycin-poly-bacitracin oint 28 gm 1 APPLIC TOPICAL (13:42)
[2022-07-30] MEDS: fluorescein 1 mg Strip XX (13:49)
--- NOTE | 2022-07-30 15:35 | PM.OP ---
Operative Report Date of procedure: July 30, 2022 Pre-op diagnosis: Preop Diagnosis Right thyroid nodule with suspicious FNA biospy Post-op diagnosis: same Post-op diagnosis: Right thyroid nodule with benign frozen section analysis Post-op findings: Large, goiterous right thyroid lobe Extensive post surgical changes Right recurrent laryngeal nerve functional by RLN nerve monitoring at the end of the procedure O/W normal anterior neck exam Procedure done: Right hemithyroidectomy Implants: None Specimens removed/disposition: Right thyroid lobe Pathology: Right thyroid lobe Surgeon: Jax Garcia Paring Machine Operator: Cat Wright Anesthesia: General Estimated blood loss (mL): 50 IV fluids (mL): 1,200 IV fluids: 250 mL of colloid Urine output (mL): 100 Complications: None Findings: Large, goiterous right thyroid lobe Extensive post surgical changes of the anterior neck Right Recurrent Laryngeal Nerve (RLN) functional by vagal stimulation at the end of the procedure O/W normal anterior neck exam Condition: stable Disposition: ICU Brief History: 72 yo wm with a h/o a right thyroid lobe nodule with a suspicious FNA biopsy who desires surgical excision of this nodule. Procedure: The patient was identified in the preoperative holding area and was taken to the operating room where he was placed on the operating table in the supine position. Anesthesia was obtained with general endotracheal anesthesia after placing the Nirvana nerve monitoring electrode on the endotracheal tube. A horizontal skin incision was was drawn out on the anterior neck 2 fingerbreadths above the sternal notch which was then injected with local anesthesia. The patient was then prepped and draped in the usual sterile fashion. The incision was made with a #15 blade and was carried down through the subcutaneous tissues to the airway which was palpable in the midline. Dissection proceeded over the right thyroid lobe which was exposed laterally into the tracheoesophageal groove. At this point the Walnut retractor was placed in the wound and the right thyroid lobe was dissected free from the surrounding tissues sequentially with multiple instruments freeing it from the surrounding tissues. At 1 point, the neck wound had to be extended to the right because of the size of the right thyroid lobe. As the right thyroid lobe was freed from the surrounding tissues the inferior pole vessels, the middle thyroid vein, and the superior pole vessels were individually ligated with ligaclips and divided. As the dissection proceeded the right thyroid lobe was freed up and rotated towards the midline. At this point the vagus nerve was stimulated in the carotid sheath with the Neurvana stimulating hemostat and the recurrent laryngeal nerve function was found to be intact. The Nirvana nerve monitoring hemostat was used to dissect in the right tracheoesophageal groove and sequentially the right thyroid lobe was freed from the surrounding tissues. Final hemostasis was achieved with bipolar cautery. 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 The thyroid wound was irrigated with a copious amount normal saline, and the wound was reinspected for hemostasis which was found to be adequate. The vagus nerve was re stimulated and the right recurrent laryngeal nerve was found to be intact electrically. At this point Gelfoam soaked in thrombin and Guru was placed in the neck wound and a CARROLL drain was placed in the wound. The neck wound was then closed with interrupted 4-0 Monocryl sutures subcu and running subcuticular 5-0 Monocryl in the subcuticular plane. The final skin was closed with Dermabond and Steri-Strips. At this point the procedure was terminated and control of the patient was returned to anesthesia where he underwent an uneventful reversal of anesthesia and extubation and was taken to the recovery room in stable condition. There were no operative or anesthetic complications.
[2022-07-30] MEDS: lactated ringers 1,000 ML 125 ML IV (16:53)
[2022-07-30] MEDS: famotidine 20 mg/2 mL INJ IVP (16:53)
[2022-07-30] MEDS: HYDROcodone-acetaminophen 5-325 mg Tablet 1 TAB PO (18:27)
[2022-07-30] MEDS: docusate sodium 100 mg Capsule PO (18:27)
[2022-07-30] MEDS: metformin 500 mg Tablet PO (18:28)
[2022-07-30] MEDS: amiodarone 200 mg Tablet PO (18:28)
--- NOTE | 2022-07-30 18:50 | P.PN_ITS ---
Subjective Subjective: 72 yo wm who is night of surgery s/p right hemithyroidectomy. The patient reports some soreness, but is o/w without c/o. Medications: Reviewed: Yes Vitals/I&O/Wt Last Vital Signs Temp 97.1 F L 07/30/22 09:10 Pulse 112 H 07/30/22 16:20 Resp 24 H 07/30/22 16:20 BP 90/66 07/30/22 16:20 Pulse Ox 88 L 07/30/22 16:20 O2 Del Method 07/30/22 16:20 O2 Flow Rate 5 07/30/22 16:15 07/30/22 07/30/22 07/30/22 06:59 14:59 22:59 Intake Total 50 / 50 Output Total 300 / 300 100 / 400 Balance -250 / -250 -100 / -350 Weight last 48 hrs Weight 120.202 kg Weight 120.202 kg Physical Exam Const: COMMON NORMALS: no acute distress and patient oriented x3 ORIENTATION/CONSCIOUSNESS: Yes Other orientation findings (The patient's voice is unchagned from preop. ) HENMT: COMMON NORMALS: normocephalic HEAD & SCALP: normocephalic Eye: COMMON NORMALS: conjunctivae normal and no scleral icterus CONJUNCTIVA: Yes conjunctivae normal Neck/C-Spine: COMMON NORMALS: no lymphadenopathy and supple GENERAL: Yes trachea midline and Yes other (The patient's neck wound is intact without swelling or erythema. ) Chest: COMMONS NORMALS: normal inspection of the chest Neuro: COMMON NORMALS: patient oriented x3 Urinary Catheter Management: Rivas: Cath Placed During This Visit: yes, but has since been removed by the nurse Urinary Catheter Date of Insertion: 07/30/22 Urinary Catheter Time of Insertion: 12:30 Date Urinary Catheter Removed: 07/30/22 Time Urinary Catheter Discontinued: 15:24 Data : 07/30/22 10:10 A&P Assessment and plan (1) Thyroid adenoma: Impression: Pt doing well s/p right hemithyroidectomy Plan: - Overnight observation in the ICY - Closed suction drainage - Anticipate d/c in the am Status: Acute Attestations Medical Necessity Statement*: The patient requires overnight observation of his airway. Coding Level of Care Code Acute Automobile Accessories Salesperson for Blair Harris Diagnoses Thyroid adenoma D34
[2022-07-31] VITALS (45 sets, daily range): BP systolic 102–128; BP diastolic 71–90; PULSE 96–132; RESP 12–26; TEMP 36.6; O2SAT 90–94
[2022-07-31] MEDS: HYDROcodone-acetaminophen 5-325 mg Tablet 1 TAB PO (00:26)
[2022-07-31] MEDS: lactated ringers 1,000 ML 125 ML IV (01:40)
--- NOTE | 2022-07-31 04:20 | P.PN_ITS ---
Subjective Subjective: 72 yo wm who is POD #1 s/p right hemithyroidectomy. The patient reports that he is doing well - he is taking po well and has minimal pain. The patient reports that his voice is unchanged from preop. Medications: Reviewed: Yes Vitals/I&O/Wt Last Vital Signs Temp 98 F 07/31/22 03:15 Pulse 99 07/31/22 03:40 Resp 24 H 07/31/22 03:40 BP 117/84 07/31/22 03:40 Pulse Ox 94 07/31/22 03:40 O2 Del Method 07/30/22 20:54 O2 Flow Rate 5 07/30/22 16:15 07/30/22 07/30/22 07/31/22 14:59 22:59 06:59 Intake Total 50 / 50 222 / 272 1000 / 1272 Output Total 300 / 300 230 / 530 530 / 1060 Balance -250 / -250 -8 / -258 470 / 212 Weight last 48 hrs Weight 120.202 kg Weight 120.202 kg Physical Exam Const: COMMON NORMALS: no acute distress, patient oriented x3 and alert HENMT: COMMON NORMALS: normocephalic, atraumatic and Normal external nose present HEAD & SCALP: normocephalic and atraumatic NOSE: Normal external nose present Eye: COMMON NORMALS: Equal, round and reactive pupils present, conjunctivae normal and no scleral icterus CONJUNCTIVA: Yes conjunctivae normal PUPIL: Yes Equal, round and reactive pupils present Neck/C-Spine: COMMON NORMALS: no lymphadenopathy and supple GENERAL: Yes trachea midline and Yes other (The patient's neck wound is clean, intact, and without swelling. ) Chest: COMMONS NORMALS: normal inspection of the chest Resp: COMMON NORMALS: normal respiratory effort, No retractions, No use of accessory muscles and clear to auscultation bilaterally AUSCULTATION: clear to auscultation bilaterally Cardio: COMMON NORMALS: regular rate, regular rhythm and No murmurs present (Cardio) RATE: regular rate RHYTHM: regular rhythm GI: COMMON NORMALS: Normal to inspection, nondistended, normoactive bowel sounds present Extremity: COMMON NORMALS: normal to inspection Neuro: COMMON NORMALS: patient oriented x3, CN's II-XII intact bilaterally and moves all extremities SENSORIUM/ORIENTATION: Yes alert CRANIAL NERVES: Yes other (Voice unchanged from preop.) Psych: COMMON NORMALS: mental status grossly normal Urinary Catheter Management: Rivas: Cath Placed During This Visit: yes, but has since been removed by the nurse Urinary Catheter Date of Insertion: 07/30/22 Urinary Catheter Time of Insertion: 12:30 Date Urinary Catheter Removed: 07/30/22 Time Urinary Catheter Discontinued: 15:24 Data : 07/30/22 10:10 A&P Assessment and plan (1) Thyroid adenoma: Impression: 72 yo wm who is POD #1 s/p right hemithyroidectomy who is doing we ll Plan: - D/C to home - Pt to resume all preop medications and take the pain medications previously prescribed - Continue closed suction drainage - F/U in Dr. Garcia's office on August, @ 08:00 - Notify Dr. Garcia for any problems Status: Acute Attestations Medical Necessity Statement*: The patient required overnight ICU observation of his post op airway Coding Level of Care Code Acute Acid Regenerator for Chg Fwd Diagnoses Thyroid adenoma D34
[2022-07-31] MEDS: ceFAZolin 2,000 MG in sodium chloride 0.9% (plus) 50 ML 100 MG IV (05:32)
--- NOTE | 2022-07-31 08:00 | PC.NURSE ---
HR dropped to the 30s, became very nauseous and lethargic. HR improved without intervention and patient improved
--- NOTE | 2022-07-31 08:08 | PC.NURSE ---
This nurse clarified with dr. Garcia about medication scripts for D/C, Dr. Garcia wrote scripts prior to admit
--- NOTE | 2022-07-31 08:58 | PC.NURSE ---
All d/c instructions educated to patient, patient signed D/C form and is [facility] at this time transported by
--- NOTE | 2022-08-01 08:08 | ANE.PACU2 ---
Inpatient post-anesthesia follow up: Airway intact: Yes Vital signs: Temperature 98 F Pulse Rate 99 Respiratory Rate 24 Blood Pressure 117/84 Pulse Oximetry 94 Oxygen Delivery Me thod [Rate & Room Air Delivery Changed T o] Oxygen Delivery Me thod Room Air Oxygen Flow Rate 5 Fraction of Inspir ed Oxygen Hydration adequate: Yes Nausea and vomiting: No Pain level: 1 Mental status: Baseline Additional Comments: EMR review
== END 2022-07-31 08:59 | disposition home or self-care (01) ==
LOC: ICU 16:36
PROVIDERS: Anesthesiology; Admitting Provider Specialist; PCP Family Medicine; Visit Provider Specialist
PROC: (CPT 60240; principal; 2022-07-30 10:05)
DX: D34 Benign neoplasm of thyroid gland (principal); E11.9 Type 2 diabetes mellitus without complications; I10 Essential (primary) hypertension; E78.5 Hyperlipidemia, unspecified; I48.91 Unspecified atrial fibrillation; I25.10 Atherosclerotic heart disease of native coronary artery without angina pectoris; K21.9 Gastro-esophageal reflux disease without esophagitis; Z79.84 Long term (current) use of oral hypoglycemic drugs; Z79.82 Long term (current) use of aspirin; Z87.891 Personal history of nicotine dependence; Z95.5 Presence of coronary angioplasty implant and graft
CPT/HCPCS: 60220; 12345; 36416; 51702; 80048; 82962; 88307; 88331; 94664; G0378; J0171; J0330; J0690; J1100; J1170; J2405; J2704; J3010; J3490; J7030; P9041

== ENCOUNTER 2022-09-30 07:24 | Outpatient (CLI) | payer OTHER, SELFPAY ==
--- NOTE | 2022-09-30 | USCV_ITS ---
Tom Germain Age: 72 Gender: M : 1950 Exam Date: 09/30/2022 07:48 Ordering Phys: Leigh Arroyo MD Technologist: MONCHO Exam Location: [facility] Indication: HX of smoker HISTORY: Diameter (cm) AP x Transverse x Length Velocity (cm/s) Waveform Prox Aorta: 2.74 x 3.02 x 72.20 Triphasic Mid Aorta: 2.22 x 2.38 x 57.30 Triphasic Distal Aorta: 1.85 x 1.66 x 72.20 Triphasic Right Iliac Prox: 1.74 x 1.86 x 109.50 Triphasic Left Iliac Prox: 1.70 x 1.45 x 130.50 Triphasic Stent Prox Landing x x Aneurysmal Sac Max x x Lt Lat Sac Dim Rt Lat Sac Dim Stent Dist Landing x x Right Iliac Stent x x Left Iliac Stent x x Right Renal Art Left Renal Art FINDINGS: Comparison: none available. A complete assessment of the abdominal aorta was not possible. Technically difficult due to body habitus. No evidence of abdominal aortic or bilateral iliac aneurysm. CONCLUSIONS Technically difficult exam but no AAA seen. Dr. Alexandra Barker DO (Electronically Signed) Final Date: 30 September 2022 08:57 S
== END 2022-09-30 07:25 | disposition home or self-care (01) ==
LOC: RAD 07:25
PROVIDERS: PCP Family Medicine; Visit Provider Family Medicine
DX: Z13.89 Encounter for screening for other disorder (principal); F17.210 Nicotine dependence, cigarettes, uncomplicated
CPT/HCPCS: 76706

== ENCOUNTER → 2023-01-27 10:09 | Outpatient (BNVA) | payer OTHER, SELFPAY | PROVIDERS: PCP Family Medicine; Visit Provider Anesthesiology Pain Medicine | DX: I25.119 Atherosclerotic heart disease of native coronary artery with unspecified angina pectoris (principal); I10 Essential (primary) hypertension; I48.19 Other persistent atrial fibrillation; Z87.891 Personal history of nicotine dependence | CPT/HCPCS: 99214; 99215 ==

== ENCOUNTER → 2023-02-20 10:13 | Outpatient (BNVA) | payer OTHER, SELFPAY | PROVIDERS: PCP Family Medicine; Visit Provider Anesthesiology Pain Medicine | DX: M47.816 Spondylosis without myelopathy or radiculopathy, lumbar region (principal); M51.36 Other intervertebral disc degeneration, lumbar region | CPT/HCPCS: 99213 ==

== ENCOUNTER → 2023-03-24 09:47 | Outpatient (BNVA) | payer OTHER, SELFPAY | PROVIDERS: PCP Family Medicine; Visit Provider Anesthesiology Pain Medicine | DX: M47.816 Spondylosis without myelopathy or radiculopathy, lumbar region (principal); M51.36 Other intervertebral disc degeneration, lumbar region | CPT/HCPCS: 99215 ==

== ENCOUNTER → 2023-04-30 13:19 | Outpatient (BNVA) | payer OTHER, SELFPAY | PROVIDERS: PCP Family Medicine; Visit Provider Anesthesiology Pain Medicine | DX: M47.816 Spondylosis without myelopathy or radiculopathy, lumbar region (principal) | CPT/HCPCS: 64493; 64494; 64495; J3490 ==

== ENCOUNTER → 2023-05-14 12:39 | Outpatient (BNVA) | payer OTHER, SELFPAY | PROVIDERS: PCP Family Medicine; Visit Provider Anesthesiology Pain Medicine | DX: M47.816 Spondylosis without myelopathy or radiculopathy, lumbar region (principal) | CPT/HCPCS: 64493; 64494; 64495; J3490 ==

== ENCOUNTER → 2023-05-22 09:36 | Outpatient (BNVA) | payer OTHER, SELFPAY | PROVIDERS: PCP Family Medicine; Visit Provider Anesthesiology Pain Medicine | DX: M47.816 Spondylosis without myelopathy or radiculopathy, lumbar region (principal); M51.36 Other intervertebral disc degeneration, lumbar region | CPT/HCPCS: 99214 ==

== ENCOUNTER → 2023-07-22 09:11 | Outpatient (BNVA) | payer OTHER, SELFPAY | PROVIDERS: PCP Family Medicine; Visit Provider Anesthesiology Pain Medicine | DX: M47.816 Spondylosis without myelopathy or radiculopathy, lumbar region (principal); M51.36 Other intervertebral disc degeneration, lumbar region | CPT/HCPCS: 99214 ==

== ENCOUNTER → 2023-07-28 14:23 | Outpatient (BNVA) | payer OTHER, SELFPAY | PROVIDERS: PCP Family Medicine; Visit Provider Internal Medicine Cardiovascular Disease | DX: I48.91 Unspecified atrial fibrillation (principal); I49.3 Ventricular premature depolarization; I25.119 Atherosclerotic heart disease of native coronary artery with unspecified angina pectoris; I10 Essential (primary) hypertension; E78.5 Hyperlipidemia, unspecified; E11.9 Type 2 diabetes mellitus without complications; Z87.891 Personal history of nicotine dependence; Z79.01 Long term (current) use of anticoagulants; Z79.82 Long term (current) use of aspirin; Z79.84 Long term (current) use of oral hypoglycemic drugs | CPT/HCPCS: 99214 ==

== ENCOUNTER → 2023-08-26 10:19 | Outpatient (BNVA) | payer OTHER, SELFPAY | PROVIDERS: PCP Family Medicine; Referring Provider Family Medicine; Visit Provider Surgery | DX: Z12.11 Encounter for screening for malignant neoplasm of colon (principal) | CPT/HCPCS: 99024; 99203 ==

== ENCOUNTER 2023-09-14 17:02 | Emergency (ER) | payer OTHER, SELFPAY ==
[2023-09-14 17:15] VITALS: BP 146/90; PULSE 104; RESP 18; TEMP 36.4; O2SAT 96; BMI 38.7
--- NOTE | 2023-09-14 18:00 | XRR_ITS ---
PROCEDURE INFORMATION: Exam: XR Cervical Spine Exam date and time: 09/14/2023 6:17 PM Age: 73 years old Clinical indication: Prior surgery; Surgery date: 6+ months; Surgery type: Cervical lami; Patient HX: Sudden onset neck pain; No known injury; Neck surg x 30yrs ago; PT states that he had a laminectomy and discectomy x 30yrs ago TECHNIQUE: Imaging protocol: Radiologic exam of the cervical spine. Views: 2 or 3 views. COMPARISON: CT neck w con* [id number] 03/16/2021 9:11 AM FINDINGS: Bones/joints: Moderate degenerative disc disease at C5-C6. Grade 1 anterolisthesis of C3 on C4. No acute cervical spine fracture. Soft tissues: Apparent prevertebral soft tissue swelling measuring up to 22 mm at the level of C6. This may be positional and a repeat trumpet lateral radiograph may be of benefit to confirm/exclude prevertebral soft tissue swelling at this level. Other findings: Postsurgical changes in the anterior neck. XR/XR cervical spine 3V* [id number] IMPRESSION: 1. No acute cervical spine fracture. 2. Moderate degenerative disc disease at C5-C6. 3. Grade 1 anterolisthesis of C3 on C4. 4. Apparent prevertebral soft tissue swelling measuring up to 22 mm at the level of C6. This may be positional and a repeat trumpet lateral radiograph may be of benefit to confirm/exclude prevertebral soft tissue swelling at this level.
--- NOTE | 2023-09-14 18:53 | W.ED.NECK ---
HPI - Neck Pain/Injury General: Chief Complaint: Neck Pain/Injury Stated Complaint: neck pain Time Seen by Provider: 09/14/23 18:46 Source: patient Mode of arrival: ambulatory Limitations: no limitations History of Present Illness: Patient is a 73-year-old male who presents the emergency room with neck pain. Patient reports that yesterday morning he woke up and severe pain. Patient denies any falls or any trauma to the neck. Patient does see Dr. Ortez for chronic back pain but unrelated at this time. Patient stated he took his gabapentin and tramadol for relief but unsuccessful. Patient rates pain a 10/10 at this time. Denies any chest pain, shortness of breath, dizziness, headache, or abdominal pain. complaint: neck pain Onset (ago): day(s) (2) Place: home Radiation: head Severity scale (1-10): 10 Associated symptoms: Denies headache(s) or nausea Review of Systems Const: Denies: fever(s), chills, body aches or change in appetite Eyes: Denies: blurry vision or eye discomfort ENMT: Denies: throat pain or dental pain Card: Denies: chest pain Resp: Denies: dyspnea GI: Denies: abdominal pain, nausea, vomiting or diarrhea : Denies: dysuria Musc: Reports: neck pain and back pain Skin/Breast: Denies: rash Neuro: Denies: headache(s) Psych: Denies: depression Eyad/Lymph: Denies: easy bruising All/Imm: Denies: urticaria PFSH ED PFSH: Medical History (Updated 09/14/23 @ 19:08 by Hilary Martinez MD) Atrial fibrillation Chronic cystitis Coronary artery disease Diabetes Dyslipidemia Erythematous bladder mucosa HTN (hypertension) Lower urinary tract symptoms Microhematuria PSVT (paroxysmal supraventricular tachycardia) PVC (premature ventricular contraction) Surgical History (Updated 08/26/23 @ 10:54 by Yara Monk) H/O right wrist surgery H/O thyroidectomy History of back surgery History of neck surgery S/P right coronary artery (RCA) stent placement Total knee replacement status BILATERAL Family History Mother , AI HER 80'S UNKNOWN CAUSE Angina at rest Denies family history of Diabetes Stroke Social History Smoking and tobacco/nicotine status: former use of tobacco/nicotine Second hand smoke exposure: Yes Alcohol intake: never Substance/Drug Use: never Adopted: No Caregiver/support person: No Lives independently: No Household members: spouse Marital status: Current occupational status: retired Physical Exam Const: COMMON NORMALS: no acute distress and patient oriented x3 HENMT: COMMON NORMALS: normocephalic and atraumatic HEAD & SCALP: normocephalic and atraumatic Eye: COMMON NORMALS: Equal, round and reactive pupils present and EOMs intact bilaterally PUPIL: Yes Equal, round and reactive pupils present Neck/C-Spine: GENERAL: Yes normal visual inspection CERVICAL SPINE: Yes pain with cervical ROM OTHER: Tenderness along the insertion points of the trapezius muscle at the base of the skull no midline tenderness Chest: COMMONS NORMALS: normal inspection of the chest and normal palpation of entire chest wall Resp: COMMON NORMALS: normal respiratory effort, No retractions, No use of accessory muscles and clear to auscultation bilaterally AUSCULTATION: clear to auscultation bilaterally Cardio: COMMON NORMALS: No murmurs present (Cardio) RHYTHM: abnormal rhythm (Chronic A-fib) GI: COMMON NORMALS: Normal to inspection, nondistended, normoactive bowel sounds present, Soft to palpation, non-tender and no masses PALPATION: Yes Soft to palpation Extremity: COMMON NORMALS: normal to inspection and full ROM Neuro: COMMON NORMALS: patient oriented x3, moves all extremities and no focal motor deficits Psych: COMMON NORMALS: mental status grossly normal, Normal thought process present and cooperative THOUGHT PROCESS: Normal thought process present Skin: COMMON NORMALS: no rashes or lesions noted and no wounds GENERAL SKIN EXAM: no rashes or lesions noted Course Vital Signs: Vital signs: Vital Signs Temperature 97.6 F 09/14/23 17:15 Pulse Rate 104 H 09/14/23 17:15 Respiratory Rate 18 09/14/23 17:15 Blood Pressure 146/90 09/14/23 17:15 Pulse Oximetry 96 09/14/23 17:15 Oxygen Delivery Me thod Room Air 09/14/23 17:15 MDM - Neck Pain/Injury Medical Decision Making Patient presents with neck pains likely muscular in nature he has no midline tenderness does have pain with palpation and range of motion no signs of any infection x-ray showed no acute abnormalities We will prescribe him pain meds along with muscle relaxant he is to ice and heat his neck return if worsening he is to follow-up with his pain specialist next week as scheduled Medical Records I reviewed the patient's medical records. Lab Data Radiology Impressions Cervical Spine X-Ray 09/14/23 18:00 IMPRESSION: 1. No acute cervical spine fracture. 2. Moderate degenerative disc disease at C5-C6. 3. Grade 1 anterolisthesis of C3 on C4. 4. Apparent prevertebral soft tissue swelling measuring up to 22 mm at the level of C6. This may be positional and a repeat trumpet lateral radiograph may be of benefit to confirm/exclude prevertebral soft tissue swelling at this level. XR interpretation done by ED provider, pending radiology final review ED provider radiology interpretation(s): xr c spine: no acute abnormalities Discharge Plan Discharge Patient Disposition: Home Clinical Impression: Neck pain Condition: Stable Prescriptions: New hydrocodone-acetaminophen 5-325 mg tablet 1 tab PO Q6H PRN (Reason: pain) Qty: 14 0RF methocarbamol 750 mg tablet 750 mg PO Q6H PRN (Reason: spasms) Qty: 20 0RF No Action cholecalciferol (vitamin D3) 25 mcg (1,000 unit) capsule 25 mcg PO QAM rosuvastatin 10 mg tablet 5 mg PO DAILY metformin 500 mg tablet 500 mg PO BID Hold Instructions: Resume on 06/16/21. finasteride 5 mg tablet 5 mg PO DAILY aspirin [Adult Low Dose Aspirin] 81 mg tablet,delayed release (DR/EC) 81 mg PO DAILY Xarelto 20 mg tablet 20 mg PO DAILY Qty: 90 3RF Rx Instructions: must administer with evening meal verapamil 40 mg tablet 40 mg PO BID Qty: 60 6RF nitroglycerin 0.4 mg tablet, sublingual 0.4 mg sublingual Q5M PRN (Reason: chest pain) Qty: 30 3RF Rx Instructions: do not exceed 3 doses per episode tramadol 50 mg tablet 50 mg PO TID PRN (Reason: pain) 30 Days Qty: 90 1RF gabapentin 300 mg capsule 300 mg PO TID Qty: 90 2RF potassium chloride 10 mEq capsule, extended release 10 meq PO DAILY Qty: 90 3RF magnesium oxide 400 mg magnesium tablet 400 mg PO DAILY Qty: 90 3RF furosemide 20 mg tablet 20 mg PO QAM Qty: 90 1RF alogliptin 25 mg Tablet 25 mg PO QAM Glucosamine Chondroitin 550-30-1 mg capsule 550 cap PO DAILY PRN albuterol sulfate 90 mcg/actuation Hfa Aerosol Inhaler 2 puff INHALATION Q4H PRN (Reason: Shortness Of Breath) Discharge Orders: Discharge ED (Routine); Ordered 09/14/23 Ordered By: Hilary Martinez Referrals: Leigh Arroyo MD [Primary Care Provider] - 1-3 days Discharge Diet: Advance as tolerated Discharge Activity: Resume usual activity Patient Instructions: Acute Neck Pain (ED) Coding Level of Care Code ED Communication Instructor for Blair Harris
[2023-09-14] MEDS: morphine 4 mg/mL SDV 1 mL IM (19:06)
[2023-09-14] MEDS: ketorolac 60 mg/2 mL INJ IM (19:07)
[2023-09-14] MEDS: methocarbamol 750 mg Tablet PO (19:07)
[2023-09-14 19:29] VITALS: BP 144/91; PULSE 91; RESP 18; O2SAT 95
== END 2023-09-14 19:30 | disposition home or self-care (01) ==
PROVIDERS: Emergency Provider Emergency Medicine; PCP Family Medicine
DX: M54.2 Cervicalgia (principal); Z79.84 Long term (current) use of oral hypoglycemic drugs; Z87.891 Personal history of nicotine dependence; I25.10 Atherosclerotic heart disease of native coronary artery without angina pectoris; E11.9 Type 2 diabetes mellitus without complications; E78.5 Hyperlipidemia, unspecified; I10 Essential (primary) hypertension
CPT/HCPCS: 72040; 96372; 99284; J1885; J2270

== ENCOUNTER → 2023-09-18 09:12 | Outpatient (BNVA) | payer OTHER, MEDICARE, SELFPAY | PROVIDERS: PCP Family Medicine; Visit Provider Anesthesiology Pain Medicine | DX: M47.816 Spondylosis without myelopathy or radiculopathy, lumbar region (principal); M51.36 Other intervertebral disc degeneration, lumbar region; M54.12 Radiculopathy, cervical region | CPT/HCPCS: 99214 ==

== ENCOUNTER → 2023-10-16 09:05 | Outpatient (BNVA) | payer OTHER, SELFPAY | PROVIDERS: PCP Family Medicine; Visit Provider Anesthesiology Pain Medicine | DX: M47.816 Spondylosis without myelopathy or radiculopathy, lumbar region (principal); M51.36 Other intervertebral disc degeneration, lumbar region; M54.2 Cervicalgia | CPT/HCPCS: 99214 ==

== ENCOUNTER 2023-10-17 08:18 | Day surgery (SDC) | payer OTHER, SELFPAY ==
--- NOTE | 2023-10-17 07:39 | W.PM.OPSFHP ---
Same Day Surgery H&P Indication for Procedure/HPI DATE OF PROCEDURE: October 17, 2023 CHIEF COMPLAINT/INDICATIONFOR SURGICAL PROCEDURE: need for screening colonoscopy PREOP DIAGNOSIS: need for screening colonoscopy PLANNED PROCEDURE: Operation Date: 10/17/23 09:15 Proposed Procedures p [id number] Colonoscopy G0121 Screen Colon A risk Z12.11(Not Applicable) - Win Polo MD Medications/Allergies* Home Medications Medication Instructions Recorded Confirmed Type finasteride 5 mg tablet 5 mg PO DAILY 12/08/19 10/16/23 History metformin 500 mg tablet 500 mg PO BID 12/08/19 10/16/23 History rosuvastatin 10 mg tablet 5 mg PO DAILY 12/08/19 10/16/23 History alogliptin 25 mg tablet 25 mg PO QAM 06/12/21 10/16/23 History cholecalciferol (vitamin D3) 25 25 mcg PO QAM 09/04/21 10/16/23 History mcg (1,000 unit) capsule albuterol sulfate 90 mcg/actuation 2 puff inhalation Q4H PRN 10/03/21 10/16/23 History aerosol inhaler Shortness Of Breath aspirin 81 mg tablet,delayed 81 mg PO DAILY 01/08/22 10/16/23 History release (Adult Low Dose Aspirin) glucosamine sulf dipot 550 cap PO DAILY PRN pain 01/27/23 10/16/23 History chlr,msm,chond 550 mg-C 30 mg-lisa 1 mg capsule (Glucosamine Chondroitin) Allergies/Adverse Reactions Allergy/AdvReac Type Severity Reaction Status Date / Time diltiazem Allergy Unknown Verified 10/16/23 09:16 metoprolol Allergy Unknown Verified 10/16/23 09:16 Pertinent History/Comorbid Conditions* Medical History (Updated 09/22/23 @ 00:01 by IAM Ford) Atrial fibrillation Chronic cystitis Coronary artery disease Diabetes Dyslipidemia Erythematous bladder mucosa HTN (hypertension) Lower urinary tract symptoms Microhematuria PSVT (paroxysmal supraventricular tachycardia) PVC (premature ventricular contraction) Surgical History (Updated 10/04/21 @ 00:01 by IAM Ford) H/O right wrist surgery H/O thyroidectomy History of back surgery History of neck surgery S/P right coronary artery (RCA) stent placement Total knee replacement status BILATERAL Family History (Updated 03/20/21 @ 13:35 by Perla Martin RN) Mother, AI HER 80'S UNKNOWN CAUSE Angina at rest Mother Denies family history of Diabetes Stroke Social History Smoking and tobacco/nicotine status: former use of tobacco/nicotine Second hand smoke exposure: Yes Alcohol intake: never Substance/Drug Use: never Adopted: No Caregiver/support person: No Lives independently: No Household members: spouse Marital status: Current occupational status: retired Pertinent Exam Findings alert, oriented x 3, clear to auscultation bilaterally, regular rate & rhythm and operative site marked Recommendations Surgery/Procedure today Coding Level of Care Code Acute Code for Chg Fwd Diagnoses
[2023-10-17 08:39] VITALS: BP 149/121; PULSE 110; RESP 18; TEMP 36.4; O2SAT 95; BMI 38.7
[2023-10-17] MEDS: sodium chloride 0.9% 1,000 ML 30 ML IV (08:51)
[2023-10-17 08:56] LABS: Glucose Point of Care 109 mg/dL (70-110)
--- NOTE | 2023-10-17 09:12 | ANES.PREANE2 ---
Pre-Anesthetic Assessment Height/Weight: Height 1.78 m Weight 122.47 kg Temp Pulse Resp BP Pulse Ox O2 Del Method 97.5 F L 110 H 18 149/121 95 Room Air 10/17/23 08:39 10/17/23 08:39 10/17/23 08:39 10/17/23 08:39 10/17/23 08:39 10/17/23 08:39 Preop Diagnosis: need for screening colonoscopy Operation Date: 10/17/23 09:15 Pro[place] Procedures p [id number] Colonoscopy G0121 Screen Colon A risk Z12.11(Not Applicable) - Win Polo MD Familial anesthetic complications: None Was Beta Dipesh taken within 24 hours: N/A Was Clonidine taken within 24 hours: N/A Last intake: Intake Last Liquid Date 10/16/23 Last Liquid Time 23:00 Last Solid Date 10/15/23 Social No alcohol and No tobacco Exam alert, oriented x 3, clear to auscultation bilaterally and regular rate & rhythm Airway Mallampati: Class IV Dentition: full CV/HEM Atrial Fibrillation, Arrythmia, Coronary Artery Disease (Stent in 2020) and Hypertension metoprolol gives him hives and his eyes swelled shut Metabolic Diabetes Mellitus and Hyperlipidemia Anesthetic Plan ASA status: 3 Anesthesia: MAC Risk of > 500 ml blood loss (7ml/kg in children): No Medications/Allergies Home Medications Medication Instructions Recorded Confirmed Last Taken Type finasteride 5 mg tablet 5 mg PO DAILY 12/08/19 10/17/23 10/17/23 History metformin 500 mg tablet 500 mg PO BID 12/08/19 10/17/23 10/16/23 19:30 History rosuvastatin 10 mg tablet 5 mg PO DAILY 12/08/19 10/17/23 10/16/23 History magnesium oxide 400 mg PO DAILY #90 tabs 03/28/21 10/17/23 10/16/23 Rx potassium chloride 10 mEq 10 meq PO DAILY #90 caps 03/28/21 10/17/23 10/17/23 Rx capsule,extended release alogliptin 25 mg tablet 25 mg PO QAM 06/12/21 10/17/23 10/16/23 History cholecalciferol (vitamin D3) 25 25 mcg PO QAM 09/04/21 10/17/23 10/17/23 History mcg (1,000 unit) capsule albuterol sulfate 90 mcg/actuation 2 puff inhalation Q4H PRN 10/03/21 10/17/23 10/12/23 History aerosol inhaler Shortness Of Breath aspirin 81 mg tablet,delayed 81 mg PO DAILY 01/08/22 10/17/23 10/16/23 History release (Adult Low Dose Aspirin) glucosamine sulf dipot 550 cap PO DAILY PRN pain 01/27/23 10/17/23 10/17/23 History chlr,msm,chond 550 mg-C 30 mg-lisa 1 mg capsule (Glucosamine Chondroitin) furosemide 20 mg tablet 20 mg PO QAM #90 tabs 04/29/23 10/17/23 10/17/23 Rx nitroglycerin 0.4 mg sublingual 0.4 mg sublingual Q5M PRN chest 07/28/23 10/17/23 Unknown Rx tablet pain #30 tabs verapamil 40 mg tablet 40 mg PO BID #60 tabs 07/28/23 10/17/23 10/17/23 Rx methocarbamol 750 mg tablet 750 mg PO Q6H PRN spasms #20 tabs 09/14/23 10/17/23 Unknown Rx gabapentin 300 mg capsule 300 mg PO TID pain #90 caps 10/16/23 10/17/23 10/17/23 Rx tramadol 50 mg tablet 50 mg PO TID PRN pain 30 days #90 10/16/23 10/17/23 10/17/23 Rx tabs Allergies Allergy/AdvReac Type Severity Reaction Status Date / Time diltiazem Allergy Unknown Verified 10/17/23 08:35 metoprolol Allergy Unknown Verified 10/17/23 08:35 Current Medications Generic Name Dose Route Start Last Admin Trade Name Freq PRN Reason Stop Dose Admin Sodium Chloride 1,000 mls @ 30 mls/hr 10/17/23 08:30 10/17/23 08:51 Sodium Chloride 0.9% IV 30 mls/hr .Q24H ARNALDO Administration PFSH Anesthesia Medical History Atrial fibrillation Chronic cystitis Coronary artery disease Diabetes Dyslipidemia Erythematous bladder mucosa HTN (hypertension) Lower urinary tract symptoms Microhematuria PSVT (paroxysmal supraventricular tachycardia) PVC (premature ventricular contraction) Surgical History H/O right wrist surgery H/O thyroidectomy History of back surgery History of neck surgery S/P right coronary artery (RCA) stent placement Total knee replacement status BILATERAL Family History Mother , AI HER 80'S UNKNOWN CAUSE Angina at rest Denies family history of Diabetes Stroke Social History Smoking and tobacco/nicotine status: former use of tobacco/nicotine Second hand smoke exposure: Yes Alcohol intake: never Substance/Drug Use: never Adopted: No Caregiver/support person: No Lives independently: No Household members: spouse Marital status: Current occupational status: retired Data Anesthesia Cardiac Studies: Echocardiogram 04/27/21 Sestamibi Stress Test (Cardiology) 04/12/21
[2023-10-17 09:48] VITALS: BP 134/93; PULSE 88; RESP 20; TEMP 36.1; O2SAT 98
--- NOTE | 2023-10-17 09:52 | ANE.PACU2 ---
Inpatient post-anesthesia follow up: Airway intact: Yes Vital signs: Temperature 97.0 F Pulse Rate 88 Respiratory Rate 20 Blood Pressure 134/93 Pulse Oximetry 98 Oxygen Delivery Me thod Room Air Oxygen Flow Rate Fraction of Inspir ed Oxygen Hydration adequate: Yes Nausea and vomiting: No Pain level: 1 Mental status: Baseline
[2023-10-17 10:04] VITALS: BP 140/91; PULSE 95; RESP 16; O2SAT 94
[2023-10-17 10:19] VITALS: O2SAT 94
== END 2023-10-17 10:31 | disposition home or self-care (01) ==
PROVIDERS: PCP Family Medicine; Visit Provider Surgery
PROC: 0DJD8ZZ Inspection of Lower Intestinal Tract, Via Natural or Artificial Opening Endoscopic (ICD-10-PCS; CPT 45378; principal; 2023-10-17 09:15)
DX: Z12.11 Encounter for screening for malignant neoplasm of colon (principal); K62.1 Rectal polyp; Z79.84 Long term (current) use of oral hypoglycemic drugs; Z79.82 Long term (current) use of aspirin; I48.91 Unspecified atrial fibrillation; I25.10 Atherosclerotic heart disease of native coronary artery without angina pectoris; E11.9 Type 2 diabetes mellitus without complications; E78.5 Hyperlipidemia, unspecified; I10 Essential (primary) hypertension; Z87.891 Personal history of nicotine dependence
CPT/HCPCS: 36416; 45385; 82962; 88305; J2704; J7030

== ENCOUNTER → 2023-10-28 10:48 | Outpatient (BNVA) | payer OTHER, SELFPAY | PROVIDERS: PCP Family Medicine; Visit Provider Surgery | DX: Z09 Encounter for follow-up examination after completed treatment for conditions other than malignant neoplasm (principal) | CPT/HCPCS: 99213 ==

== ENCOUNTER → 2023-12-16 09:03 | Outpatient (BNVA) | payer OTHER, SELFPAY | PROVIDERS: PCP Family Medicine; Visit Provider Anesthesiology Pain Medicine | DX: M47.816 Spondylosis without myelopathy or radiculopathy, lumbar region (principal); M51.36 Other intervertebral disc degeneration, lumbar region; M54.2 Cervicalgia | CPT/HCPCS: 99214 ==

== ENCOUNTER → 2024-01-28 09:59 | Outpatient (BNVA) | payer OTHER, SELFPAY | PROVIDERS: PCP Family Medicine; Visit Provider Nurse Practitioner Family | DX: I25.119 Atherosclerotic heart disease of native coronary artery with unspecified angina pectoris (principal); I48.19 Other persistent atrial fibrillation; I10 Essential (primary) hypertension; Z87.891 Personal history of nicotine dependence | CPT/HCPCS: 99214 ==

== ENCOUNTER → 2024-02-03 09:58 | Outpatient (BNVA) | payer OTHER, SELFPAY | PROVIDERS: PCP Family Medicine; Visit Provider Anesthesiology Pain Medicine | DX: M54.12 Radiculopathy, cervical region (principal); M47.816 Spondylosis without myelopathy or radiculopathy, lumbar region; M51.36 Other intervertebral disc degeneration, lumbar region | CPT/HCPCS: 99214 ==

== ENCOUNTER 2024-02-06 07:23 | Outpatient (CLI) | payer OTHER, SELFPAY ==
--- NOTE | 2024-02-06 07:44 | ECG_ITS ---
[facility] Test Date: 2024-02-06 Pat Name: Tom Germain Department: Room: Gender: Male Autotransfusionist: : 1950 Requested By: Mirna Hightower Order Number: [id number] [place] MD: Alfa Davis M.D. Interpretive Statements NAME OF STUDY: LEXISCAN SESTAMIBI STRESS TEST INDICATION: WORSENING URBINA/PRIOR RCA STENT, PROCEDURE: At the baseline, the EKG revealed normal sinus rhythm with a poor R wave progression. The baseline heart was 90 bpm with a blood pressue of 135/92 mm of Hg Lexiscan was infused over a period of 20 seconds. A total of 0.4 milligrams of Lexiscan was infused. The stress phase was continued for a total of 5 minutes. Heart rate at the end of the stress phase was 103 bpm with a blood pressure 121/89 mm of Hg. The EKG at the peak infusion revealed no significant changes. Sestamibi was injected 20 seconds after the Lexiscan infusion. Heart rate at the end of the recovery phase was 110 bpm with a blood pressure of 144/88 mm of Hg. CONCLUSION: 1. No significant EKG changes with the LexiScan infusion 2. No LexiScan induced chest pain or cardiac arrhythmia 3. Normal blood pressure and heart rate response 4. Sestamibi/sestamibi perfusion scan pending; see separate report. Electronically Signed On 02-07-2024 20:55:27 CHAINSTITCH HEMMER by Alfa Davis M.D. [id number]
--- NOTE | 2024-02-06 07:45 | NMCV_ITS ---
NM belinda perf SPECT r/s* [id number] Tom Germain Age: 73 Gender: M : 1950 Exam Date: 02/06/2024 08:24 Ordering Phys: Mirna Hightower Technologist: LITTLE Perry Exam Location: [facility] Indications: ATHEROSCLEROTIC HEART DISEASE STRESS TEST Please see [facility] stress [facility] for full findings IMAGE PROTOCOL Rest/Stress 1 Lexiscan Day Radiopharmaceutical Dose (mCi) Administration Site Administered by Rest: Tc-99m 10.8 IV LITTLE Russo Sestamibi Stress:Tc-99m 32.9 IV LITTLE Russo Sestamibi Rest: 06-Feb-2024 60 Discovery 630 Stress: 06-Feb-2024 30 Discovery 630 0.4mg Lexiscan. Supine position only as patient was unable to lay prone. SPECT RESULTS Technical Quality: Excellent Raw Data Analysis: Normal Image Corrections: No attenuation or motion correction applied Summed Stress Score: 0 Summed Rest Score: 0 Summed Difference Score: 0 PERFUSION FINDINGS Fairly uniform myocardial tracer uptake with no significant perfusion abnormalities FUNCTIONAL RESULTS (calculated via Gated SPECT) Stress Image LV EF (%): 61 Stress EDV (mL):88 TID: 0.97 Stress ESV (mL):34 FUNCTIONAL FINDINGS: Segmental wall motion analysis revealing no gross wall motion abnormalities IMPRESSIONS 1. Myocardial perfusion imaging revealing uniform myocardial tracer uptake 2. Normal LV ejection fraction of 61% 3. LV wall motion analysis revealing no gross wall motion abnormalities. 4. Normal LV volume Low probability for coronary ischemia, based on the above findings Compared to the previous study from 04/12/2021, there is no evidence of ischemia in the current study Dr Alfa Davis MD FACC (Electronically Signed) Final Date: 06 February 2024 18:11 S
[2024-02-06 07:51] VITALS: BMI 38.7
[2024-02-06] MEDS: regadenoson 0.4 Mg/5 ml Syringe 0.400000000000000022 MG IVP (09:22)
[2024-02-06 11:33] VITALS: BP 144/88; PULSE 98
== END 2024-02-06 07:24 | disposition home or self-care (01) ==
LOC: CDL 07:24
PROVIDERS: PCP Family Medicine; Visit Provider Nurse Practitioner Family
DX: I25.119 Atherosclerotic heart disease of native coronary artery with unspecified angina pectoris (principal)
CPT/HCPCS: 36415; 78452; 93017; 96374; A9500; J2785

== ENCOUNTER → 2024-04-01 08:57 | Outpatient (BNVA) | payer OTHER, SELFPAY | PROVIDERS: PCP Family Medicine; Visit Provider Anesthesiology Pain Medicine | DX: M47.816 Spondylosis without myelopathy or radiculopathy, lumbar region (principal); M51.36 Other intervertebral disc degeneration, lumbar region; M54.2 Cervicalgia | CPT/HCPCS: 99214 ==

== ENCOUNTER 2024-04-08 11:51 | Emergency (ER) | payer OTHER, SELFPAY ==
[2024-04-08 11:55] VITALS: BP 143/90; PULSE 96; RESP 16; TEMP 37.1; O2SAT 94; BMI 38.7
--- NOTE | 2024-04-08 12:09 | W.ED.BACK ---
HPI - Back Pain/Injury General: Chief Complaint: Back Pain/Injury Stated Complaint: lower back pain, right leg pain Time Seen by Provider: 04/08/24 12:05 Source: patient Mode of arrival: ambulatory Limitations: no limitations History of Present Illness: 73-year-old male who states he has chronic back pain he states that he pushed a truck a week ago and having worse back pain since then. States it is in his right lower back and radiates down his right hip and leg. He sees Dr. Ortez with pain management states his pain meds at home are not helping it is currently a 4 out of 10 it is improved with rest worse with standing and walking Associated symptoms: Deny abdominal pain, chills, fever(s), nausea or vomiting Review of Systems Const: Denies: fever(s), chills, body aches or change in appetite ENMT: Denies: throat pain or dental pain Card: Denies: chest pain Resp: Denies: dyspnea GI: Denies: abdominal pain, nausea, vomiting or diarrhea Musc: Reports: back pain; Denies: neck pain Skin/Breast: Denies: rash Neuro: Denies: headache(s) PFSH ED PFSH: Medical History Atrial fibrillation Coronary artery disease PSVT (paroxysmal supraventricular tachycardia) Dyslipidemia Diabetes HTN (hypertension) PVC (premature ventricular contraction) Chronic cystitis Erythematous bladder mucosa Microhematuria Lower urinary tract symptoms Surgical History H/O thyroidectomy S/P right coronary artery (RCA) stent placement History of neck surgery Total knee replacement status BILATERAL History of back surgery H/O right wrist surgery Family History Mother , AI HER 80'S UNKNOWN CAUSE Angina at rest Denies family history of Diabetes Stroke Social History Smoking and tobacco/nicotine status: former use of tobacco/nicotine Second hand smoke exposure: Yes Alcohol intake: never Substance/Drug Use: never Adopted: No Caregiver/support person: No Lives independently: No Household members: spouse Marital status: Current occupational status: retired Physical Exam Const: COMMON NORMALS: no acute distress, patient oriented x3 and healthy appearing HENMT: COMMON NORMALS: normocephalic and atraumatic HEAD & SCALP: normocephalic and atraumatic Neck/C-Spine: COMMON NORMALS: full ROM and supple Chest: COMMONS NORMALS: normal inspection of the chest Resp: COMMON NORMALS: normal respiratory effort and No retractions Cardio: COMMON NORMALS: regular rate RATE: regular rate Back/Pelvis: OTHER: Tenderness to right lower back no midline tenderness no saddle anesthesia Extremity: COMMON NORMALS: normal to inspection and full ROM Neuro: COMMON NORMALS: patient oriented x3, moves all extremities and no focal motor deficits Psych: COMMON NORMALS: mental status grossly normal, Normal thought process present and cooperative THOUGHT PROCESS: Normal thought process present Skin: COMMON NORMALS: no rashes or lesions noted and no wounds GENERAL SKIN EXAM: no rashes or lesions noted Course Vital Signs: Vital signs: Vital Signs Temperature 98.7 F 04/08/24 11:55 Pulse Rate 96 04/08/24 11:55 Respiratory Rate 16 04/08/24 11:55 Blood Pressure 143/90 04/08/24 11:55 Pulse Oximetry 94 04/08/24 11:55 Oxygen Delivery Me thod Room Air 04/08/24 11:55 MDM - Back Pain/Injury Medical Decision Making Patient presents here with back pain with sciatica he has no signs of cord compression or epidural abscess did give him pain meds steroids here will prescribe him muscle relaxants Naprosyn and prednisone he is to follow back up with his pain specialist return if worsening. Medical Records I reviewed the patient's medical records. No radiology studies performed this visit Discharge Plan Discharge Patient Disposition: Home Clinical Impression: Low back pain Qualifiers: Chronicity: acute Back pain laterality: right Sciatica presence: with sciatica Sciatica laterality: sciatica of right side Qualified Code(s): M54.41 - Lumbago with sciatica, right side Condition: Stable Prescriptions: New methocarbamol 750 mg tablet 750 mg PO Q6H PRN (Reason: spasms) Qty: 20 0RF Naprosyn 500 mg tablet 500 mg PO BID PRN (Reason: pain) Qty: 20 0RF prednisone 50 mg tablet 50 mg PO DAILY Qty: 5 0RF No Action cholecalciferol (vitamin D3) 25 mcg (1,000 unit) capsule 25 mcg PO QAM rosuvastatin 10 mg tablet 5 mg PO DAILY metformin 500 mg tablet 500 mg PO BID Hold Instructions: Resume on 06/16/21. finasteride 5 mg tablet 5 mg PO DAILY aspirin [Adult Low Dose Aspirin] 81 mg tablet,delayed release (DR/EC) 81 mg PO DAILY verapamil 40 mg tablet 40 mg PO BID Qty: 60 6RF nitroglycerin 0.4 mg tablet, sublingual 0.4 mg sublingual Q5M PRN (Reason: chest pain) Qty: 30 3RF Rx Instructions: do not exceed 3 doses per episode tramadol 50 mg tablet 50 mg PO TID PRN (Reason: pain) 30 Days Qty: 90 1RF pantoprazole [Protonix] 40 mg tablet,delayed release (DR/EC) 40 mg PO BID 14 Days Qty: 28 0RF potassium chloride 10 mEq capsule, extended release 10 meq PO DAILY Qty: 90 3RF magnesium oxide 400 mg magnesium tablet 400 mg PO DAILY Qty: 90 3RF gabapentin 300 mg capsule 300 mg PO TID Qty: 90 2RF furosemide 40 mg tablet 40 mg PO QAM Qty: 90 2RF alogliptin 25 mg Tablet 25 mg PO QAM Glucosamine Chondroitin 550-30-1 mg capsule 550 cap PO DAILY PRN (Reason: pain) albuterol sulfate 90 mcg/actuation Hfa Aerosol Inhaler 2 puff INHALATION Q4H PRN (Reason: Shortness Of Breath) methocarbamol 750 mg tablet 750 mg PO Q6H PRN (Reason: spasms) Qty: 20 0RF Discharge Orders: Discharge ED (Routine); Ordered 04/08/24 Ordered By: Hilary Martinez Referrals: Leigh Arroyo MD [Primary Care Provider] - Discharge Diet: Advance as tolerated Discharge Activity: Resume usual activity Patient Instructions: Sciatica (ED), Acute Low Back Pain (ED) Coding Level of Care Code ED Director Manufacturing Engineering for Blair Harris
[2024-04-08] MEDS: methocarbamol 750 mg Tablet 1500 MG PO (12:13)
[2024-04-08] MEDS: ketorolac 30 mg/mL INJ IM (12:16)
[2024-04-08] MEDS: dexamethasone 10 mg/mL INJ IM (12:16)
[2024-04-08 12:47] VITALS: PULSE 92; RESP 16; O2SAT 95
== END 2024-04-08 12:48 | disposition home or self-care (01) ==
PROVIDERS: Emergency Provider Emergency Medicine; PCP Family Medicine
DX: M54.41 Lumbago with sciatica, right side (principal); Z79.82 Long term (current) use of aspirin; Z79.84 Long term (current) use of oral hypoglycemic drugs; Z87.891 Personal history of nicotine dependence; I25.10 Atherosclerotic heart disease of native coronary artery without angina pectoris; E78.5 Hyperlipidemia, unspecified; E11.9 Type 2 diabetes mellitus without complications; I10 Essential (primary) hypertension
CPT/HCPCS: 96372; 99284; J1100; J1885

== ENCOUNTER → 2024-05-03 09:55 | Outpatient (BNVA) | payer OTHER, SELFPAY | PROVIDERS: PCP Family Medicine; Visit Provider Anesthesiology Pain Medicine | DX: M51.36 Other intervertebral disc degeneration, lumbar region (principal); M47.816 Spondylosis without myelopathy or radiculopathy, lumbar region; M54.2 Cervicalgia | CPT/HCPCS: 99214 ==

== ENCOUNTER → 2024-07-28 12:44 | Outpatient (BNVA) | payer OTHER, SELFPAY | PROVIDERS: PCP Family Medicine; Visit Provider Internal Medicine | DX: R00.2 Palpitations (principal); R06.02 Shortness of breath; I48.91 Unspecified atrial fibrillation; I49.3 Ventricular premature depolarization; I25.119 Atherosclerotic heart disease of native coronary artery with unspecified angina pectoris; I10 Essential (primary) hypertension; E78.5 Hyperlipidemia, unspecified; E11.9 Type 2 diabetes mellitus without complications; Z87.891 Personal history of nicotine dependence | CPT/HCPCS: 99214 ==

== ENCOUNTER 2024-08-27 05:57 | Outpatient (CLI) | payer OTHER, SELFPAY ==
--- NOTE | 2024-08-27 06:15 | USCV_ITS ---
Tom Germain Age: 74 Gender: M : 1950 Exam Date: 08/27/2024 06:15 Ordering Phys: Connor Ramirez M.D ([email or web address]) Technologist: RODRIGUEZ [place] [facility] [place]: SHORTNESS OF BREATH BP: 138 / 88 HR: 86 Rhythm: Atrial fibrillation Technical Quality: Adequate MEASUREMENTS (Male / Female) Normal Values 2D ECHO LV Diastolic Diameter PLAX 4.7 cm 4.2 - 5.9 / 3.9 - 5.3 cm IVS Diastolic Thickness 1.6 cm 0.6 - 1.0 / 0.6 - 0.9 cm IVS Systolic Thickness 2.3 cm LVPW Diastolic Thickness 1.9 cm 0.6 - 1.0 / 0.6 - 0.9 cm LVPW Systolic Thickness 2.5 cm LVOT Diameter 2.0 cm LV Ejection Fraction 2D Teich 58.1 % LV Ejection Fraction MOD 4C 69.2 % LV Ejection Fraction MOD 2C 45.3 % LV Ejection Fraction 2C AL 54.6 % LA Diameter 4.5 cm RA Systolic Volume 4C AL 28.3 ml RA Systolic Volume 4C MOD 26.4 ml LA Sys Volume AL 47.3 cm cubed LA Sys Volume Index AL 18.8 cm cubed/m squared Aorta at Sinotubular Diameter 2.7 cm IVC Diameter 1.4 cm M-MODE LA Ao Ratio MM 2.1 AV Cusp Separation MM 1.6 cm DOPPLER AV Peak Velocity 120.0 cm/s LVOT Peak Velocity 88.0 cm/s AV Area Cont Eq vti 2.3 cm squared AV Area Cont Eq pk 2.3 cm squared MV Peak Velocity 126.0 cm/s MV Area PHT 4.6 cm squared Mitral E to A Ratio 0.0 TR Peak Velocity 202.0 cm/s TR Peak Gradient 16.3 mmHg TR Mean Velocity 154.0 cm/s TR Mean Gradient 10.6 mmHg TR Velocity Time Integral 59.0 cm Right Atrial Pressure 3.0 mmHg Pulmonary Artery Systolic Pressu 19.3 mmHg PV Peak Velocity 82.0 cm/s RV Ejection Time 0.3 s FINDINGS Left Ventricle Normal left ventricular cavity size. Normal left ventricular systolic function. Left ventricular ejection fraction is estimated at 58 %. Grade I/IV diastolic dysfunction (abnormal relaxation filling pattern), normal to mildly elevated filling pressures. Right Ventricle The right ventricle is normal in size and function. Right Atrium The right atrium is normal in size. Left Atrium Moderately increased left atrial size. Mitral Valve Mildly thickened mitral valve. No mitral valve stenosis. Mild mitral valve regurgitation. Aortic Valve Structurally normal aortic valve without significant sclerosis or stenosis. There is no aortic regurgitation. Tricuspid Valve Structurally normal tricuspid valve without significant stenosis or regurgitation. Pulmonary artery systolic pressure is normal. Pulmonic Valve Structurally normal pulmonic valve without significant stenosis. There is no pulmonic regurgitation. Pericardium Normal pericardium without effusion. Aorta Normal ascending aorta dimension. IVC The inferior vena cava appears normal. CONCLUSIONS Normal left ventricular cavity size. Normal left ventricular systolic function. Left ventricular ejection fraction is estimated at 58 %. Grade I/IV diastolic dysfunction (abnormal relaxation filling pattern), normal to mildly elevated filling pressures. Moderately increased left atrial size. Mildly thickened mitral valve. No mitral valve stenosis. Mild mitral valve regurgitation. There is no pericardial effusion. Right atrial pressure is around 10 mm of mercury. Amanuel Amado MD (Electronically Signed) Final Date: 04 September 2024 12:25 S
== END 2024-08-27 05:58 | disposition home or self-care (01) ==
LOC: RAD 05:58
PROVIDERS: PCP Family Medicine; Visit Provider Internal Medicine
DX: I50.30 Unspecified diastolic (congestive) heart failure (principal); I51.7 Cardiomegaly
CPT/HCPCS: 93306

== ENCOUNTER → 2024-09-03 09:39 | Outpatient (BNVA) | payer OTHER, SELFPAY | PROVIDERS: PCP Family Medicine; Visit Provider Nurse Practitioner Family | DX: I48.19 Other persistent atrial fibrillation (principal); Z79.01 Long term (current) use of anticoagulants | CPT/HCPCS: 99213 ==

== ENCOUNTER 2024-10-08 10:13 | Day surgery (SDC) | payer OTHER, SELFPAY ==
--- NOTE | 2024-10-08 10:22 | USCV_ITS ---
Tom Germain Age: 74 Gender: M : 1950 Exam Date: 10/08/2024 12:22 Ordering Phys: Amanuel Amado MD ([email or web address]) Technologist: Joe Ortez [place] [facility] [place] [facility] [place]: afib BP: / HR: Rhythm: Sinus Technical Quality: Adequate MEASUREMENTS (Male / Female) Normal Values Medications IV propofol was given by anesthesia service. Please refer to the report Complications None. Proc. Components The patient was brought to the JUSTIN examination room in a fasting state after obtaining an informed consent. The JUSTIN probe was passed into the posterior pharynx , mid-esophagus, distal esophagus, and gastric fundus. JUSTIN was performed at multiple levels. The patient tolerated the procedure well and there were no complications. FINDINGS Left Ventricle Normal left ventricular size and systolic function, EF 60%. Right Ventricle Normal right ventricular size. Right Atrium Mildly increased right atrial size. Left Atrium Moderately increased left atrial size. LA Appendage Normal appendage size with diminished contractility. No intracavitary masses or thrombi IA Septum Appears to be intact with no evidence of any PFO or atrial septal defect. Mitral Valve Trace to mild mitral regurgitation Aortic Valve Minimal calcification Tricuspid Valve Trace to mild tricuspid regurgitation Pulmonic Valve No gross abnormalities noted Pericardium No pericardial effusion. Aorta Minimal plaques in the descending aorta CONCLUSIONS Normal left ventricular size and systolic function, EF 60%. Moderately increased left atrial size. Mildly increased right atrial size. Normal left atrial appendage size with diminished contractility No intracavitary masses or thrombus No evidence of ASD or patent foramen ovale by color-flow Doppler examination or by contrast injection No similar previous studies are available for comparison Dr Alfa Davis MD [facility] (Electronically Signed) Final Date: 11 October 2024 09:15 S
[2024-10-08 10:34] VITALS: BP 117/84; PULSE 73; RESP 18; TEMP 36.4; O2SAT 95
--- NOTE | 2024-10-08 10:34 | ECG_ITS ---
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 Measurements Intervals [place] Rate: 77 P: 0 IN: 0 QRS: 17 QRSD: 106 T: 28 QT: 410 QTc: 466 Interpretive Statements ATRIAL FIBRILLATION NONSPECIFIC T-WAVE ABNORMALITY ABNORMAL RHYTHM ECG Compared to ECG 07/23/2022 14:39:43 T-wave abnormality now present Ventricular premature complex(es) no longer present Aberrant conduction of supraventricular beat(s) no longer present Electronically Signed On 10-08-2024 18:20:29 CONTACT LENS BLOCKER by Mickey Vásquez M.D. [id number]
--- NOTE | 2024-10-08 10:45 | P.ANESASSM_ITS ---
Pre-Anesthetic Assessment Height/Weight: Height 1.78 m Temp Pulse Resp BP Pulse Ox O2 Del Method 97.6 F 73 18 117/84 95 Room Air 10/08/24 10:34 10/08/24 10:34 10/08/24 10:34 10/08/24 10:34 10/08/24 10:34 10/08/24 10:34 Operation Date: 10/08/24 12:00 Proposed Procedures p JUSTIN/CARDIOVERSION(Not Applicable) - Alfa Davis MD Familial anesthetic complications: none Was Beta Dipesh taken within 24 hours: N/A Was Clonidine taken within 24 hours: N/A Last intake: > 8 hrs Social No alcohol and No tobacco Exam alert, oriented x 3, clear to auscultation bilaterally and regular rate & rhythm Airway Mallampati: Class I Dentition: full CV/HEM Atrial Fibrillation, Coronary Artery Disease and Hypertension Anesthetic Plan ASA status: 3 Anesthesia: MAC Risk of > 500 ml blood loss (7ml/kg in children): No Medications/Allergies Home Medications Medication Instructions Recorded Confirmed Last Taken Type finasteride 5 mg tablet 5 mg PO DAILY 12/08/19 10/08/24 10/07/24 History rosuvastatin 10 mg tablet 5 mg PO DAILY 12/08/19 10/08/24 10/07/24 History magnesium oxide 400 mg PO DAILY #90 tabs 03/28/21 10/08/24 10/08/24 Rx potassium chloride 10 mEq 10 meq PO DAILY #90 caps 03/28/21 10/08/24 10/08/24 Rx capsule,extended release alogliptin 25 mg tablet 25 mg PO QAM 06/12/21 10/08/24 10/07/24 History cholecalciferol (vitamin D3) 25 25 mcg PO QAM 09/04/21 10/08/24 10/08/24 History mcg (1,000 unit) capsule albuterol sulfate 90 mcg/actuation 2 puff inhalation Q4H PRN 10/03/21 10/08/24 10/12/23 History aerosol inhaler Shortness Of Breath aspirin 81 mg tablet,delayed 81 mg PO DAILY 01/08/22 10/08/24 10/08/24 History release (Adult Low Dose Aspirin) nitroglycerin 0.4 mg sublingual 0.4 mg sublingual Q5M PRN chest 07/28/23 10/08/24 Unknown Rx tablet pain #30 tabs methocarbamol 750 mg tablet 750 mg PO Q6H PRN spasms #20 tabs 09/14/23 10/08/24 Unknown Rx furosemide 40 mg tablet 40 mg PO QAM #90 tabs 03/22/24 10/08/24 10/08/24 Rx verapamil 40 mg tablet 40 mg PO BID #60 tabs 04/20/24 10/08/24 10/08/24 Rx tramadol 50 mg tablet 50 mg PO TID PRN pain 30 days #90 05/03/24 10/08/24 10/08/24 Rx tabs rivaroxaban 20 mg tablet (Xarelto) 20 mg PO DAILY #90 tabs 07/28/24 10/08/24 10/08/24 Rx amiodarone 200 mg tablet 200 mg PO BID 10/06/24 10/08/24 10/07/24 History coenzyme Q10 100 mg capsule 100 mg PO DAILY 10/06/24 10/08/24 10/08/24 History (CoQ-10) gabapentin 300 mg capsule 300 mg PO TID PRN pain 10/06/24 10/08/24 10/08/24 History semaglutide 0.25 mg or 0.5 mg (2 0.25 mg SUBCUT .WKLY 10/06/24 10/08/24 10/01/24 History mg/3 mL) subcutaneous pen injector Allergies Allergy/AdvReac Type Severity Reaction Status Date / Time diltiazem Allergy Unknown Verified 09/03/24 09:43 metoprolol Allergy ALGY-Rash Verified 09/03/24 09:43 [facility] [place] Anesthesia Medical History Atrial fibrillation Coronary artery disease PSVT (paroxysmal supraventricular tachycardia) Dyslipidemia Diabetes HTN (hypertension) PVC (premature ventricular contraction) Chronic cystitis Erythematous bladder mucosa Microhematuria Lower urinary tract symptoms Surgical History H/O thyroidectomy S/P right coronary artery (RCA) stent placement History of neck surgery Total knee replacement status BILATERAL History of back surgery H/O right wrist surgery Family History Mother , AI HER 80'S UNKNOWN CAUSE Angina at rest Denies family history of Diabetes Stroke Social History Smoking and tobacco/nicotine status: former use of tobacco/nicotine Second hand smoke exposure: Yes Alcohol intake: never Substance/Drug Use: never Adopted: No Caregiver/support person: No Lives independently: No Household members: spouse Marital status: Current occupational status: retired Data Anesthesia Cardiac Studies: Echocardiogram 08/27/24 Sestamibi Stress Test (Cardiology) 02/05 Cardiac Event Monitor 07/28/24
[2024-10-08 10:50] VITALS: BMI 35.9
[2024-10-08] MEDS: sodium chloride 0.9% 1,000 ML 30 ML IV (11:10)
--- NOTE | 2024-10-08 11:59 | W.PM.OPSUD ---
Surgery/Procedure H&P Update DATE OF PROCEDURE: October 08, 2024 DATE H&P PERFORMED: 10/08/24 H&P UPDATE INFORMATION: I have reviewed H&P completed within last 30 days, I have examined patient prior to procedure and No changes to prior documentation PREOP DIAGNOSIS: Atrial fibrillation symptomatic PLANNED PROCEDURE: Operation Date: 10/08/24 12:00 Proposed Procedures p JUSTIN/CARDIOVERSION(Not Applicable) - Alfa Davis MD
--- NOTE | 2024-10-08 12:01 | P.HP_ITS ---
Providers/Chief Complaint Primary Care Provider: Leigh Arroyo MD Chief Complaint: I48.19 History of Present Illness Tom Germain is a 74 year old male known to have atrial fibrillation. He is on AV shantel blocking agents and amiodarone. He continues to have symptomatic atrial fibrillation. JUSTIN cardioversion was recommended by Dr. Amado, for further management of his condition I was asked to do this procedure in his absence. Review of Systems Narrative: CONSTITUTIONAL: No fever or chills. EYES: No blurring of vision or other visual disturbances lately. ENT: No hoarseness of voice, auditory disturbances or sore throat. CARDIOVASCULAR: As mentioned above. RESPIRATORY: No significant cough. GASTROINTESTINAL: No hematemesis or melena. GENITOURINARY: No dysuria or hematuria. INTEGUMENTARY: No skin rashes or history of skin cancer. NEURO: No transient ischemic attacks or amaurosis. PSYCHIATRIC: No history of psychosis or major depression. HEMATOLOGIC: No bleeding disorders or significant anemia. ENDOCRINE: No history of polyuria or polydipsia. MUSCULOSKELETAL: No recent joint pain or swelling. ALLERGY/IMMUNOLOGY: As mentioned above. Medications/Allergies Home Medications Medication Instructions Recorded Confirmed Last Taken Type finasteride 5 mg tablet 5 mg PO DAILY 12/08/19 10/08/24 10/07/24 History rosuvastatin 10 mg tablet 5 mg PO DAILY 12/08/19 10/08/24 10/07/24 History magnesium oxide 400 mg PO DAILY #90 tabs 03/28/21 10/08/24 10/08/24 Rx potassium chloride 10 mEq 10 meq PO DAILY #90 caps 03/28/21 10/08/24 10/08/24 Rx capsule,extended release alogliptin 25 mg tablet 25 mg PO QAM 06/12/21 10/08/24 10/07/24 History cholecalciferol (vitamin D3) 25 25 mcg PO QAM 09/04/21 10/08/24 10/08/24 History mcg (1,000 unit) capsule albuterol sulfate 90 mcg/actuation 2 puff inhalation Q4H PRN 10/03/21 10/08/24 10/12/23 History aerosol inhaler Shortness Of Breath aspirin 81 mg tablet,delayed 81 mg PO DAILY 01/08/22 10/08/24 10/08/24 History release (Adult Low Dose Aspirin) nitroglycerin 0.4 mg sublingual 0.4 mg sublingual Q5M PRN chest 07/28/23 10/08/24 Unknown Rx tablet pain #30 tabs methocarbamol 750 mg tablet 750 mg PO Q6H PRN spasms #20 tabs 09/14/23 10/08/24 Unknown Rx furosemide 40 mg tablet 40 mg PO QAM #90 tabs 03/22/24 10/08/24 10/08/24 Rx verapamil 40 mg tablet 40 mg PO BID #60 tabs 04/20/24 10/08/24 10/08/24 Rx tramadol 50 mg tablet 50 mg PO TID PRN pain 30 days #90 05/03/24 10/08/24 10/08/24 Rx tabs rivaroxaban 20 mg tablet (Xarelto) 20 mg PO DAILY #90 tabs 07/28/24 10/08/24 10/08/24 Rx amiodarone 200 mg tablet 200 mg PO BID 10/06/24 10/08/24 10/07/24 History coenzyme Q10 100 mg capsule 100 mg PO DAILY 10/06/24 10/08/24 10/08/24 History (CoQ-10) gabapentin 300 mg capsule 300 mg PO TID PRN pain 10/06/24 10/08/24 10/08/24 History semaglutide 0.25 mg or 0.5 mg (2 0.25 mg SUBCUT .WKLY 10/06/24 10/08/24 10/01/24 History mg/3 mL) subcutaneous pen injector Allergies Allergy/AdvReac Type Severity Reaction Status Date / Time diltiazem Allergy Unknown Verified 09/03/24 09:43 metoprolol Allergy ALGY-Rash Verified 09/03/24 09:43 PFSH Acute PFSH: Medical History Atrial fibrillation Coronary artery disease PSVT (paroxysmal supraventricular tachycardia) Dyslipidemia Diabetes HTN (hypertension) PVC (premature ventricular contraction) Chronic cystitis Erythematous bladder mucosa Microhematuria Lower urinary tract symptoms Surgical History H/O thyroidectomy S/P right coronary artery (RCA) stent placement History of neck surgery Total knee replacement status BILATERAL History of back surgery H/O right wrist surgery Family History Mother , AI HER 80'S UNKNOWN CAUSE Angina at rest Denies family history of Diabetes Stroke Social History Smoking and tobacco/nicotine status: former use of tobacco/nicotine Second hand smoke exposure: Yes Alcohol intake: never Substance/Drug Use: never Adopted: No Caregiver/support person: No Lives independently: No Household members: spouse Marital status: Current occupational status: retired Vitals/I&O/Wt Last Vital Signs Temp 97.6 F 10/08/24 10:34 Pulse 73 10/08/24 10:34 Resp 18 10/08/24 10:34 BP 117/84 10/08/24 10:34 Pulse Ox 95 10/08/24 10:34 O2 Del Method Room Air 10/08/24 10:34 Weight last 48 hrs Weight 250 lb Physical Exam Narrative: GENERAL: The patient is alert and oriented times three. Not in any acute distress. Obese HEENT: No significant pallor, icterus or lymphadenopathy.Oral cavity: There are no mucous membrane lesions. NECK: Trachea appears to be central. No masses noted. No JVD or thyromegaly appreciated. RESPIRATORY: Chest is symmetrical. No intercostals muscle retraction or any accessory muscle activation. There is no chest wall tenderness. Breath sounds are heard bilaterally. No rales or rhonchi heard. No evidence of any consolidation. BREASTS: Deferred. HEART: The heart sounds are normal. No S3 or S4. No significant murmurs. No pericardial rub ABDOMEN: No vessel pulsations or distention. No tenderness. No organomegaly appreciated. Bowel sounds are normally heard. : Deferred. RECTAL: Deferred. LYMPHATIC: No lymphadenopathy noted in the neck. EXTREMITIES: No edema or cyanosis. No clubbing. MUSCULOSKELETAL: No acute joint deformities or swelling SKIN: There are no significant rashes or ecchymosis NEUROPSYCHIATRIC: The patient is alert and oriented x3. Appears to be in a good mood. No tremors or rigidity noted. A&P Assessment and plan (1) Atrial fibrillation: Because of the ongoing atrial fibrillation in order to further manage his condition, a JUSTIN cardioversion would be appropriate. The risk of aspiration, bleeding, soft tissue injury, perforation of the stomach/esophagus and other concomitant complications were explained to the patient in detail. The patient understood this well and consented to proceed Qualifiers: Atrial fibrillation type: persistent (not longstanding) Qualified Code(s): I48.19 - Other persistent atrial fibrillation (2) HTN (hypertension): Currently normotensive Qualifiers: Hypertension type: essential hypertension Qualified Code(s): I10 - Essential (primary) hypertension (3) Coronary artery disease: Clinically seems to be stable with no specific symptoms Qualifiers: Associated angina: with unspecified form of angina Coronary Disease- Associated Artery/Lesion type: [place] artery [place] vs. transplanted heart: [place] heart Qualified Code(s): I25.119 - Atherosclerotic heart disease of [place] coronary artery with unspecified angina pectoris Plan JUSTIN cardioversion today. The risks and benefits were explained in detail with the patient and his which they understood well and consented to proceed Attestations Medical Necessity Statement*: Possible discharge home after the cardioversion Coding Level of Care Code Acute Code for [facility] Fwd Diagnoses Persistent atrial fibrillation I48.19 Atrial fibrillation type: persistent (not longstanding) Essential hypertension I10 Hypertension type: essential hypertension Coronary artery disease involving [place] coronary artery of [place] heart with angina pectoris I25.119 Associated angina: with unspecified form of angina Coronary Disease-Associated Artery/Lesion type: [place] artery [place] vs. transplanted heart: [place] heart
[2024-10-08 13:04] VITALS: BP 102/69; PULSE 49; RESP 20; TEMP 36.1; O2SAT 98
--- NOTE | 2024-10-08 13:09 | W.PM.OPSUD ---
Surgery/Procedure H&P Update DATE OF PROCEDURE: October 08, 2024 DATE H&P PERFORMED: 10/08/24 PREOP DIAGNOSIS: Atrial fibrillation symptomatic PRIMARY INDICATION FOR PROCEDURE: Symptomatic atrial fibrillation PLANNED PROCEDURE: Operation Date: 10/08/24 12:00 Proposed Procedures p JUSTIN/CARDIOVERSION(Not Applicable) - Alfa Davis MD
--- NOTE | 2024-10-08 13:09 | PM.OP ---
Operative Report Date of procedure: October 08, 2024 Surgeon: Alfa Davis MD Procedure: Electrical cardioversion report Preprocedure diagnoses: Atrial fibrillation/hypertension. Brief history: 74-year-old white male with a history of symptomatic atrial fibrillation, on AV shantel blocking agents and amiodarone. Because of the ongoing symptoms, for further management of his condition, a JUSTIN cardioversion was recommended. JUSTIN was performed in the outpatient surgery department. Patient was found to have mild MR and trace to mild TR. No intracardiac masses. Location of the procedure: Outpatient Surgery Electrode application: Anteroposterior Electrical energy applied: 200 J of biphasic current Number of shocks: Single Final rhythm: Sinus bradycardia with a rate of 52 bpm Final blood pressure: 106/70 Complications: None Recommendation(s): Continue on the current medications Follow-up appointment at the [facility] to be seen by the nurse practitioner in 1 week. Follow-up with Dr. Ramirez as scheduled
[2024-10-08 13:20] VITALS: BP 99/72; PULSE 53; RESP 18; O2SAT 94
--- NOTE | 2024-10-08 13:21 | ECG_ITS ---
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 Measurements Intervals [place] Rate: 51 P: 62 CA: 211 QRS: 7 QRSD: 105 T: 91 QT: 459 QTc: 424 Interpretive Statements SINUS BRADYCARDIA WITH FIRST DEGREE AV BLOCK NONSPECIFIC ST & T-WAVE ABNORMALITY Compared to ECG 10/08/2024 10:34:41 First degree AV block now present Atrial fibrillation no longer present T-wave abnormality still present Electronically Signed On 10-09-2024 16:07:02 REHABILITATION AIDE by Mickey Vásquez M.D. [email or web address]
[2024-10-08 13:30] VITALS: BP 111/70; PULSE 47; RESP 18; O2SAT 97
[2024-10-08 13:50] VITALS: BP 137/83; PULSE 56; RESP 16; O2SAT 97
--- NOTE | 2024-10-08 14:05 | ANE.PACU2 ---
Inpatient post-anesthesia follow up: Airway intact: Yes Vital signs: Temperature 97.0 F Pulse Rate 56 Respiratory Rate 16 Blood Pressure 137/83 Pulse Oximetry 97 Oxygen Delivery Me thod Room Air Oxygen Flow Rate 10 Fraction of Inspir ed Oxygen Hydration adequate: Yes Nausea and vomiting: No Pain level: 1 Mental status: Baseline
[2024-10-08 14:43] LABS: Glucose Point of Care 88 mg/dL (70-110)
== END 2024-10-08 14:05 | disposition home or self-care (01) ==
PROVIDERS: Internal Medicine Cardiovascular Disease; PCP Family Medicine; Visit Provider Internal Medicine Cardiovascular Disease
PROC: (CPT 93312; principal; 2024-10-08 12:00)
DX: I48.19 Other persistent atrial fibrillation (principal); I25.119 Atherosclerotic heart disease of native coronary artery with unspecified angina pectoris; I10 Essential (primary) hypertension; Z79.82 Long term (current) use of aspirin; E11.9 Type 2 diabetes mellitus without complications; E78.5 Hyperlipidemia, unspecified; Z95.5 Presence of coronary angioplasty implant and graft; Z87.891 Personal history of nicotine dependence
CPT/HCPCS: 36416; 82962; 93005; 93312; 93320; 93325; J2704; J7030

== ENCOUNTER → 2024-10-18 12:30 | Outpatient (BNVA) | payer OTHER, SELFPAY | PROVIDERS: PCP Family Medicine; Visit Provider Nurse Practitioner Family | DX: I48.19 Other persistent atrial fibrillation (principal); I25.10 Atherosclerotic heart disease of native coronary artery without angina pectoris; I10 Essential (primary) hypertension; Z79.01 Long term (current) use of anticoagulants; Z79.82 Long term (current) use of aspirin | CPT/HCPCS: 99213 ==

== ENCOUNTER → 2025-01-21 12:34 | Outpatient (BNVA) | payer OTHER, SELFPAY | PROVIDERS: PCP Family Medicine; Visit Provider Internal Medicine | DX: I48.91 Unspecified atrial fibrillation (principal); I49.3 Ventricular premature depolarization; I25.119 Atherosclerotic heart disease of native coronary artery with unspecified angina pectoris; I10 Essential (primary) hypertension; E78.5 Hyperlipidemia, unspecified; E11.9 Type 2 diabetes mellitus without complications; Z87.891 Personal history of nicotine dependence; Z79.01 Long term (current) use of anticoagulants | CPT/HCPCS: 99214 ==

== ENCOUNTER → 2025-02-23 11:06 | Outpatient (BNVA) | payer OTHER, SELFPAY | PROVIDERS: PCP Family Medicine; Visit Provider Podiatrist Foot & Ankle Surgery | DX: E11.42 Type 2 diabetes mellitus with diabetic polyneuropathy (principal); L84 Corns and callosities; L85.3 Xerosis cutis | CPT/HCPCS: 99203 ==

== ENCOUNTER → 2025-04-26 07:04 | Outpatient (BNVA) | payer OTHER, SELFPAY | PROVIDERS: PCP Family Medicine; Visit Provider Podiatrist Foot & Ankle Surgery | DX: E11.42 Type 2 diabetes mellitus with diabetic polyneuropathy (principal); L84 Corns and callosities; L85.3 Xerosis cutis | CPT/HCPCS: 99213 ==

== ENCOUNTER → 2025-10-11 08:58 | Outpatient (BNVA) | payer OTHER, SELFPAY | PROVIDERS: PCP Family Medicine; Visit Provider Podiatrist Foot & Ankle Surgery | DX: L84 Corns and callosities (principal); E11.42 Type 2 diabetes mellitus with diabetic polyneuropathy; L85.3 Xerosis cutis; M20.41 Other hammer toe(s) (acquired), right foot; M20.42 Other hammer toe(s) (acquired), left foot; M72.2 Plantar fascial fibromatosis | CPT/HCPCS: 99213 ==

== ENCOUNTER → 2025-10-19 15:45 | Outpatient (BNVA) | payer OTHER, SELFPAY | PROVIDERS: PCP Family Medicine; Visit Provider Nurse Practitioner Family | DX: I48.91 Unspecified atrial fibrillation (principal); Z79.01 Long term (current) use of anticoagulants; I49.3 Ventricular premature depolarization; I25.10 Atherosclerotic heart disease of native coronary artery without angina pectoris; I10 Essential (primary) hypertension; E78.5 Hyperlipidemia, unspecified; E11.9 Type 2 diabetes mellitus without complications; Z79.85 Long-term (current) use of injectable non-insulin antidiabetic drugs; R07.9 Chest pain, unspecified; Z95.5 Presence of coronary angioplasty implant and graft; Z87.891 Personal history of nicotine dependence | CPT/HCPCS: 93005; 99214 ==

== ENCOUNTER 2025-10-25 10:06 | Outpatient (CLI) | payer OTHER, SELFPAY ==
[2025-10-25 10:23] VITALS: BMI 34.4
--- NOTE | 2025-10-25 10:25 | ECG_ITS ---
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 Interpretive Statements Findings: Baseline blood pressure was 144/87 with a heart rate of 85 bpm. The patient exercised for a total of 3 minutes and 58 seconds which is below average for the patient's age. He reached a maximum heart rate of 141 bpm which is 98% of the patient's maximal predicted heart rate. The patient achieved 7.3 METS. The peak blood pressure was 152/87. At the end of recovery the patient's heart rate was 96 bpm with a blood pressure of 152/72. Baseline EKG showed atrial fibrillation with nonspecific T wave flattening. No ST or T wave changes. No arrhythmias. CONCLUSION: 1. Exercise capacity was below average for age. 2. Heart rate response was appropriate. 3. Blood pressure response was appropriate. 4. No symptoms of angina during exercise. 5. Electrocardiogram portion of the stress test without evidence of ischemia. Electronically Signed On 10-25-2025 18:01:20 BAKER BISCUIT by Gwyn Bhandari M.D. [email or web address]
--- NOTE | 2025-10-25 10:26 | NMCV_ITS ---
NM belinda perf SPECT r/s* [id number] Tom Germain Age: 75 Gender: M : 1950 Exam Date: 10/25/2025 11:12 Ordering Phys: Lindsey Nicole NP Technologist: LITTLE Devries Exam Location: [facility] Indications: cp STRESS TEST Please see separate stress test report in [facility] for full findings IMAGE PROTOCOL Rest/Stress 1 Exercise Day Radiopharmaceutical Dose (mCi) Administration Site Administered by Rest: Tc-99m 11 IV Sandra Pan, AFTER SCHOOL CAREGIVER Sestamibi Stress:Tc-99m 32.9 IV Sandra Pan, AFTER SCHOOL CAREGIVER Sestamibi Rest: 25-Oct-2025 60 Discovery 630 Stress: 25-Oct-2025 30 Discovery 630 Radiopharmaceutical was injected at 85 % maximum heart rate. Images obtained in supine and prone position. SPECT RESULTS Technical Quality: Good Raw Data Analysis: Normal Image Corrections: No attenuation or motion correction applied Summed Stress Score: 0 Summed Rest Score: 0 Summed Difference Score: 0 PERFUSION FINDINGS SPECT images demonstrate homogeneous tracer distribution throughout the myocardium. FUNCTIONAL RESULTS (calculated via Gated SPECT) Stress Image LV EF (%): 74 Stress EDV (mL):85 TID: 0.88 Stress ESV (mL):22 FUNCTIONAL FINDINGS: There is normal left ventricular size and systolic function. IMPRESSIONS Myocardial perfusion imaging is normal. Normal left ventricular systolic function, EF 74%.. Gwyn Bhandari MD, FACC (Electronically Signed) Final Date: 25 October 2025 13:48 S
[2025-10-25 12:46] VITALS: BP 123/84; PULSE 82
== END 2025-10-25 10:07 | disposition home or self-care (01) ==
LOC: CDL 10:08
PROVIDERS: PCP Family Medicine; Visit Provider Nurse Practitioner Family
DX: R07.9 Chest pain, unspecified (principal)
CPT/HCPCS: 36415; 78452; 93017; A9500